=== PATIENT | male | born 1945 | race Caucasian/White ===

== ENCOUNTER 2017-05-02 05:51 | Emergency (ER) | payer MEDICARE, OTHER ==
--- NOTE | 2017-05-02 06:21 | EDM.PDOC ---
ED HPI GENERAL MEDICAL PROBLEM - General Chief Complaint: ENT Problem Stated Complaint: TONGUE SUrGERY LAST MONDAY BLEEDING Time Seen by Provider: 05/02/17 06:02 Source of Information: Reports: Patient, Family (spouse) History Limitations: Reports: No Limitations - History of Present Illness INITIAL COMMENTS - FREE TEXT/NARRATIVE: 72-year-old male presents to the ED with active bright red bleeding from his right lateral tongue. 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 Apparently sutures were placed but none are apparent this time. He did have some mild bleeding yesterday but awoke with a mouthful of blood about an hour ago and it's continued to bleed actively from the right side of his tongue. Of note the patient is chronically anticoagulated with Coumadin which he started back on the day after surgery. 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 Onset: Today Onset Date: 05/02/17 Onset Time: 05:00 Duration: Minutes: Location: Reports: Face (Active bleeding from site of surgical wound right side of tongue.) Quality: Reports: Other Severity: Moderate Improves with: Reports: None Worsens with: Reports: None Context: Reports: Trauma (Bleeding from surgical site right lateral tongue.). Denies: Activity, Exercise, Lifting, Sick Contact Associated Symptoms: Reports: No Other Symptoms Treatments SENIOR ENERGY CONSULTANT: Reports: Other (see below) (None.) Left Oral/Mouth Pain Score (Numeric/FACES): 3 - Related Data Allergies Allergy/AdvReac Type Severity Reaction Status Date / Time No Known Allergies Allergy Verified 05/02/17 06:02 Home Meds: Home Meds Amantadine [Symmetrel] 100 mg PO TID 05/02/17 [History] Hydrochlorothiazide 25 mg PO DAILY 05/02/17 [History] Metoprolol Tartrate 50 mg PO BID 05/02/17 [History] Potassium Chloride 10 meq PO DAILY 05/02/17 [History] Rosuvastatin [Crestor] 10 mg PO DAILY 05/02/17 [History] Tamsulosin [Flomax] 0.4 mg PO DAILY 05/02/17 [History] Valsartan 160 mg PO DAILY 05/02/17 [History] Warfarin [Coumadin] 7.5 mg PO SUMOWETHFRSA 05/02/17 [History] Warfarin [Coumadin] 10 mg PO TU 05/02/17 [History] amLODIPine Besylate [Amlodipine Besylate] 5 mg PO DAILY 05/02/17 [History] Past Medical History Cardiovascular History: Reports: High Cholesterol, Hypertension, Other (See Below) Other Cardiovascular History: Valve replacement Gastrointestinal History: Reports: Hiatal Hernia Other Musculoskeletal History: back fracture Neurological History: Reports: Parkinson's Hematologic History: Reports: Blood Transfusion(s) - Past Surgical History GI Surgical History: Reports: Cholecystectomy Social & Family History - Tobacco Use Smoking Status *Q: Former Smoker Used Tobacco, but Quit: Yes Month/Year Tobacco Last Used: 1989 - Recreational Drug Use Recreational Drug Use: No - Living Situation & Occupation Living situation: Reports: Occupation: Retired ED ROS ENT - Review of Systems Review Of Systems: See Below Constitutional: Reports: Malaise, Weakness, Fatigue (Chronically), Decreased Appetite (Hasn't been able to eat much because of his sore tongue the last few days.). Denies: Fever, Chills HEENT: Reports: Other (Resident dictation to the ED because of severe bleeding from right lateral side of tongue.) Respiratory: Reports: No Symptoms Cardiovascular: Reports: No Symptoms Endocrine: Reports: Fatigue (Due to Parkinson's disease.) GI/Abdominal: Reports: No Symptoms : Reports: Frequency Skin: Reports: No Symptoms Neurological: Reports: Other (Severe Parkinson's disease with uncontrolled titubation tremor of head and neck as well as extremities.) Psychiatric: Reports: No Symptoms Hematologic/Lymphatic: Reports: No Symptoms Immunologic: Reports: No Symptoms ED EXAM, ENT - Physical Exam Exam: See Below Exam Limited By: Physical Impairment (Exam is limited by his severe Parkinson's disease) General Appearance: Alert, WD/WN, No Apparent Distress, Other (Has masklike feces.) Mouth/Throat: Other (Examination reveals very active bleeding from the right side of his mid tongue. This appears to be a site of recent biopsy or surgical excision. No sutures are apparent. The wound is actively bleeding bright red blood. Attempts to bring it under control with silver nitrate failed. Large clot was removed from the floor the mouth and lateral aspect of the tongue.) Head: Atraumatic, Normocephalic Neck: Normal Inspection, Supple, Non-Tender, Full Range of Motion. No: Lymphadenopathy (L), Lymphadenopathy (R) Respiratory/Chest: No Respiratory Distress ED ENT PROCEDURES - Laceration/Wound Repair Lateral Lac/wound length in cm: 1 (Lateral side mid right tongue) Appearance: Subcutaneous Anesthetic Type: Local Local Anesthesia - Lidocaine (Xylocaine): 1% with EPI Suture Size: 4-0 # of Sutures: 4 Repaired with: Vicryl Course - Vital Signs Last Recorded V/S: Last Vital Signs Temp 35.7 C 05/02/17 06:02 Pulse 72 05/02/17 07:33 Resp 18 05/02/17 07:33 BP 127/68 05/02/17 07:33 Pulse Ox 100 05/02/17 07:33 - Orders/Labs/Meds Orders: Active Orders 24 hr Category Date Time Status CBC WITH MANUAL DIFF [HEME] Stat Lab 05/02/17 06:34 Results Dextrose 5%-0.9% NaCl [Dextrose 5%-Normal Saline] 1,000 Med 05/02/17 07:00 Active ml IV ASDIRECTED Dextrose 5%-0.9% NaCl [Dextrose 5%-Normal Saline] 1,000 Med 05/02/17 07:00 Active ml IV ASDIRECTED Tranexamic Acid [Cyklokapron] Med 05/02/17 06:15 Active 1,000 mg TOP ONETIME Medication Orders Dextrose/Sodium Chloride (Dextrose 5%-Normal Saline) 1,000 mls @ 999 drops/hr IV ASDIRECTED CORNELIUS Dextrose/Sodium Chloride (Dextrose 5%-Normal Saline) 1,000 mls @ 999 mls/hr IV ASDIRECTED CORNELIUS Tranexamic Acid (Cyklokapron) 1,000 mg TOP ONETIME CORNELIUS Labs: Laboratory Tests 05/02/17 05/02/17 05/02/17 Range/Units 06:34 06:34 06:34 WBC 7.54 (4.23-9.07) K/mm3 RBC 4.25 L (4.63-6.08) M/mm3 Hgb 13.6 L (13.7-17.5) gm/L Hct 39.4 L (40.1-51.0) % MCV 92.7 H (79.0-92.2) fl MCH 32.0 (25.7-32.2) pg MCHC 34.5 (32.2-35.5) g/dl RDW Std Deviation 45.5 H (35.1-43.9) fL Plt Count 203 (163-337) K/mm3 MPV 9.1 L (9.4-12.3) fl PT 30.3 H (8.0-13.0) SECONDS INR 2.80 Sodium 142 (136-145) mEq/L Potassium 3.5 (3.5-5.1) mEq/L Chloride 106 (98-107) mEq/L Carbon Dioxide 25 (21-32) mEq/L Anion Gap 14.5 (5-15) BUN 25 H (7-18) mg/dL Creatinine 1.0 (0.7-1.3) mg/dL Est Cr Clr Drug Dosing 75.44 mL/min Estimated GFR (MDRD) > 60 (>60) mL/min BUN/Creatinine Ratio 25.0 H (14-18) Glucose 116 H (80-115) mg/dL Calcium 9.0 (8.5-10.1) mg/dL Total Bilirubin 0.9 (0.2-1.0) mg/dL AST 34 (15-37) U/L ALT 39 (16-63) U/L Alkaline Phosphatase 121 H (46-116) U/L Total Protein 7.4 (6.4-8.2) g/dl Albumin 3.7 (3.4-5.0) g/dl Globulin 3.7 gm/dL Albumin/Globulin Ratio 1.0 (1-2) Meds: Medications Generic Name Dose Route Start Last Admin Trade Name Freq PRN Reason Stop Dose Admin Dextrose/Sodium Chloride 1,000 mls @ 999 drops/hr 05/02/17 07:00 Dextrose 5%-Normal Saline IV ASDIRECTED CORNELIUS Dextrose/Sodium Chloride 1,000 mls @ 999 mls/hr 05/02/17 07:00 Dextrose 5%-Normal Saline IV ASDIRECTED CORNELIUS Tranexamic Acid 1,000 mg 05/02/17 06:15 Cyklokapron TOP ONETIME CORNELIUS Discontinued Medications Generic Name Dose Route Start Last Admin Trade Name Freq PRN Reason Stop Dose Admin Lidocaine HCl Confirm 05/02/17 07:19 Xylocaine-Mpf 1% Administered 05/02/17 07:20 Dose 4 mls @ as directed .ROUTE .STK-MED ONE Lidocaine/Epinephrine 20 ml 05/02/17 07:15 Xylocaine 1% With Epinephrine 1:100,000 INJECT 05/02/17 07:16 ONETIME ONE Lidocaine/Epinephrine Confirm 05/02/17 07:21 Xylocaine 1% With Epinephrine 1:100,000 Administered 05/02/17 07:22 Dose 20 ml .ROUTE .STK-MED ONE Ondansetron HCl 4 mg 05/02/17 08:13 Zofran Odt PO 05/02/17 08:14 ONETIME ONE Oxycodone/Acetaminophen 1 tab 05/02/17 08:14 Percocet 325-5 Mg PO 05/02/17 08:15 ONETIME ONE Propofol Confirm 05/02/17 07:20 Diprivan 20 Ml Administered 05/02/17 07:21 Dose 200 mg .ROUTE .STK-MED ONE - Radiology Interpretation Free Text/Narrative:: 72-year-old male presents to the ED with active bright red bleeding from right lateral surgical tongue wound. She had a chronic ulcer on the side of his right tongue was failing to heal and went to your nose and throat surgery after many months to have it removed. This was done on April 28. Of note the patient is on Coumadin chronically due to atrial fibrillation. Apparently his Coumadin was not discontinued for the procedure. At any rate she's been up most of the night with very active bleeding from the tongue trying to compress it to get it to stop bleeding with gauze but it continues to bleed. I attempted to bring it under control with silver nitrate sticks but it is bleeding too aggressively. Also placed trans-anemic acid into the wound but again it was slow the bleeding but will not stop it. I will therefore speak to VP OF MARKETING about providing a short course of anesthesia or conscious sedation so that I can gain control of the area of bleeding without his tongue moving aggressively from Parkinson's disease. Plan will be to inject it with one or 2% lidocaine with epinephrine and then sutured with Vicryl suture 2 to stop the bleeding. - Re-Assessments/Exams Free Text/Narrative Re-Assessment/Exam: 05/02/17 07:31 patient was given propofol by VP OF [employer]ET[employer] which allowed adequate sedation to allow me to suture the bleeding site from the right tongue. It was injected first with lidocaine with 1% epinephrine. Bleeding came under control with 4 Vicryl 40 sutures. She'll be allowed to recover from-anesthetic and will be monitored for the next 45 minutes to make sure bleeding his come under good control. 05/02/17 07:56 White count is 7.54 with differential pending. Hemoglobin is 13.6 with hematocrit of 39.4. Platelet count is normal at 203,000. PT is 30.3 and INR is a bit high at 2.80.. Sodium is 142 with potassium of 3.5. Chloride 106 bicarbonate 25. Anion gap is 14.5. BUNs 25 with a creatinine of 1.0 i.e. he is mildly dry. GFR is greater than 60. Glucose is 116. Alkaline phosphatase is 121 slightly elevated. Liver function otherwise normal. I'm going to have the patient hold his Coumadin today but resume normal dose tomorrow. On reinspection he still has slight oozing from the lateral aspect of his right tongue but for the most part the bleeding is controlled. 05/02/17 08:14 is now having significant amount of pain in the right side of his tongue radiating to his right ear. Will give him a Percocet 5//25 milligram tablet by mouth with Zofran 4 mg sublingually for pain relief. His has returned and therefore I will discharge him into her care. Departure - Departure Time of Disposition: 08:16 Disposition: Home, Self-Care 01 Condition: Fair Clinical Impression: Hemorrhage of tongue Wound dehiscence, surgical Qualifiers: Encounter type: initial encounter Qualified Code(s): T81.31XA - Disruption of external operation (surgical) wound, not elsewhere classified, initial encounter - Discharge Information Referrals: eTra Crawford MD [Primary Care Provider] - Forms: ED Department Discharge Additional Instructions: Evaluation the emergency room this morning in regards to persistent active bleeding from the right lateral aspect of your tongue at site of recent surgical wound. And a large ulcer was removed from the lateral aspect of your tongue by ear nose and throat surgeon on April 28. As you appreciated slight bleeding occurred from the wound yesterday but bleeding persisted most of the night. On my inspection 2 of the sutures that had been placed on the distal aspect of the wound had torn through. Due to being on Coumadin you had very aggressive bleeding from the lateral aspect of your tongue. I could not bring it under control with topical cautery or transemic acid application. You therefore required mild anesthesia to provide sedation so that we could adequately identify the source of bleeding and I resutured the wound to bring the bleeding under control. For more Vicryl sutures were placed to stop the bleeding. The stitches will dissolve on their own. Your Coumadin time today was a little on the high side at INR 2.8. Suggest holding her Coumadin today and resuming normal dose tomorrow. Of course return to the ED or follow up with ear nose and throat surgeon if further bleeding continues. Your hemoglobin today was 13.9 which is normal. - My Orders Last 24 Hours: My Active Orders 05/02/17 06:15 Tranexamic Acid [Cyklokapron] 1,000 mg TOP ONETIME 05/02/17 06:34 CBC WITH MANUAL DIFF [HEME] Stat 05/02/17 07:00 Dextrose 5%-0.9% NaCl [Dextrose 5%-Normal Saline] 1,000 ml IV ASDIRECTED Dextrose 5%-0.9% NaCl [Dextrose 5%-Normal Saline] 1,000 ml IV ASDIRECTED - Assessment/Plan Last 24 Hours: My Active Orders 05/02/17 06:15 Tranexamic Acid [Cyklokapron] 1,000 mg TOP ONETIME 05/02/17 06:34 CBC WITH MANUAL DIFF [HEME] Stat 05/02/17 07:00 Dextrose 5%-0.9% NaCl [Dextrose 5%-Normal Saline] 1,000 ml IV ASDIRECTED Dextrose 5%-0.9% NaCl [Dextrose 5%-Normal Saline] 1,000 ml IV ASDIRECTED
[2017-05-02] MEDS ORDERED: Dextrose 5%-0.9% NaCl 1,000 ML IV SCH ×2 (07:00)
--- NOTE | 2017-05-02 07:13 | PCM.PREANE ---
Preanesthetic Assessment - Anesthesia/Transfusion/Family Hx Anesthesia History: Prior Anesthesia Without Reaction Family History of Anesthesia Reaction: No Transfusion History: Prior Transfusion Without Reaction - Review of Systems General: No Symptoms Pulmonary: No Symptoms Cardiovascular: No Symptoms Gastrointestinal: No Symptoms Neurological: Other (parkinsons) Other: Reports: Easy Bleeding, Easy Bruising - Physical Assessment O2 Sat by Pulse Oximetry: 99 Respiratory Rate: 18 Vital Signs: Last Vital Signs Temp 96.3 F 05/02/17 06:02 Pulse 62 05/02/17 06:02 Resp 18 05/02/17 06:02 BP 154/114 H 05/02/17 06:02 Pulse Ox 99 05/02/17 06:02 Height: 6 ft Weight: 88.451 kg ASA Class: 2E Mental Status: Alert & Oriented x3 Airway Class: Mallampati = 1 Dentition: Reports: Normal Dentition Thyro-Mental Finger Breadths: 3 Mouth Opening Finger Breadths: 3 ROM/Head Extension: Full - Lab Values: Laboratory Last Values WBC 7.54 K/mm3 (4.23-9.07) 05/02/17 06:34 RBC 4.25 M/mm3 (4.63-6.08) L 05/02/17 06:34 Hgb 13.6 gm/L (13.7-17.5) L 05/02/17 06:34 Hct 39.4 % (40.1-51.0) L 05/02/17 06:34 MCV 92.7 fl (79.0-92.2) H 05/02/17 06:34 MCH 32.0 pg (25.7-32.2) 05/02/17 06:34 MCHC 34.5 g/dl (32.2-35.5) 05/02/17 06:34 RDW Std Deviation 45.5 fL (35.1-43.9) H 05/02/17 06:34 Plt Count 203 K/mm3 (163-337) 05/02/17 06:34 MPV 9.1 fl (9.4-12.3) L 05/02/17 06:34 - Allergies Allergies/Adverse Reactions: Allergies Allergy/AdvReac Type Severity Reaction Status Date / Time No Known Allergies Allergy Verified 05/02/17 06:02 - Blood Blood Available: No - Anesthesia Plan Pre-Op Medication Ordered: Beta Alisha Beta Alisha: Metoprolol Med Last Dose Date: 05/01/17 Med Last Dose Time: 18:00 - Acknowledgements Anesthesia Type Planned: MAC Pt an Appropriate Candidate for the Planned Anesthesia: Yes Alternatives and Risks of Anesthesia Discussed w Pt/Guardian: Yes Pt/Guardian Understands and Agrees with Anesthesia Plan: Yes PreAnesthesia Questionnaire Cardiovascular History: Reports: High Cholesterol, Hypertension, Other (See Below) Other Cardiovascular History: Valve replacement Gastrointestinal History: Reports: Hiatal Hernia Other Musculoskeletal History: back fracture Neurological History: Reports: Parkinson's Hematologic History: Reports: Blood Transfusion(s) - Past Surgical History HEENT Surgical History: Reports: Oral Surgery GI Surgical History: Reports: Cholecystectomy Neurological Surgical History: Reports: Other (See Below) (jody in back) - SUBSTANCE USE Smoking Status *Q: Former Smoker Tobacco Use Within Last Twelve Months: No Second Hand Smoke Exposure: No Days Per Week of Alcohol Use: 0 Recreational Drug Use History: No - HOME MEDS Home Medications: Home Meds Amantadine [Symmetrel] 100 mg PO TID 05/02/17 [History] Hydrochlorothiazide 25 mg PO DAILY 05/02/17 [History] Metoprolol Tartrate 50 mg PO BID 05/02/17 [History] Potassium Chloride 10 meq PO DAILY 05/02/17 [History] Rosuvastatin [Crestor] 10 mg PO DAILY 05/02/17 [History] Tamsulosin [Flomax] 0.4 mg PO DAILY 05/02/17 [History] Valsartan 160 mg PO DAILY 05/02/17 [History] Warfarin [Coumadin] 7.5 mg PO SUMOWETHFRSA 05/02/17 [History] Warfarin [Coumadin] 10 mg PO TU 05/02/17 [History] amLODIPine Besylate [Amlodipine Besylate] 5 mg PO DAILY 05/02/17 [History] - CURRENT (IN HOUSE) MEDS Current Meds: Current Medications Dextrose/Sodium Chloride (Dextrose 5%-Normal Saline) 1,000 mls @ 999 drops/hr IV ASDIRECTED CORNELIUS Dextrose/Sodium Chloride (Dextrose 5%-Normal Saline) 1,000 mls @ 999 mls/hr IV ASDIRECTED CORNELIUS Tranexamic Acid (Cyklokapron) 1,000 mg TOP ONETIME CORNELIUS Discontinued Medications Lidocaine HCl (Xylocaine-Mpf 1%) Confirm Administered Dose 4 mls @ as directed .ROUTE .STK-MED ONE Stop: 05/02/17 07:20 Propofol (Diprivan 20 Ml) Confirm Administered Dose 200 mg .ROUTE .STK-MED ONE Stop: 05/02/17 07:21
[2017-05-02] MEDS ORDERED: Lidocaine 1% with EPINEPHrine 1:100,000 20 ML MDV INJECT ONE (07:15)
[2017-05-02] MEDS ORDERED: Lidocaine 1% 4 ML ONE (07:19)
[2017-05-02] MEDS ORDERED: Propofol 200 MG/20 ML SDV ONE (07:20)
[2017-05-02] MEDS ORDERED: Lidocaine 1% with EPINEPHrine 1:100,000 20 ML MDV ONE (07:21)
--- NOTE | 2017-05-02 07:33 | PCM48HPAN ---
Post Anesthesia Note - EVALUATION WITHIN 48HRS OF ANESTHETIC Vital Signs in Normal Range: Yes Patient Participated in Evaluation: Yes Respiratory Function Stable: Yes Airway Patent: Yes Cardiovascular Function Stable: Yes Hydration Status Stable: Yes Pain Control Satisfactory: Yes Nausea and Vomiting Control Satisfactory: Yes Mental Status Recovered: Yes Pulse Rate: 72 SaO2: 100 Resp Rate: 18 Blood Pressure: 127/68
[2017-05-02] MEDS ORDERED: Ondansetron 4 MG Tab.DIS PO ONE (08:13)
[2017-05-02] MEDS ORDERED: Acetaminophen/oxyCODONE 325-5 MG Tab PO ONE (08:14)
== END 2017-05-02 08:53 | disposition home or self-care (01) ==
LOC: JD.ED 05:51
DX: T81.31XA Disruption of external operation (surgical) wound, not elsewhere classified, initial encounter (principal); I10 Essential (primary) hypertension; E78.00 Pure hypercholesterolemia, unspecified; Z95.2 Presence of prosthetic heart valve; Z87.891 Personal history of nicotine dependence; Z79.01 Long term (current) use of anticoagulants; Z79.899 Other long term (current) drug therapy; Z98.890 Other specified postprocedural states; K14.8 Other diseases of tongue
CPT/HCPCS: 36415; 36430; 41250; 80053; 85025; 85610; 86900; 86901; 96360; 96365; 99283; 99284; A9270; J3430; J7042; J7050; P9017; 00170; 12011; J2704

== ENCOUNTER 2017-05-02 12:27 | Emergency (ER) | payer MEDICARE, OTHER ==
[2017-05-02] MEDS ORDERED: Sodium Chloride 0.9% 10 ML Syringe FLUSH PRN (12:51)
[2017-05-02] MEDS ORDERED: Phytonadione 5 MG in Sodium Chloride 0.9% 50 ML IV ONE (12:53)
--- NOTE | 2017-05-02 16:40 | EDM.PDOC ---
ED HPI GENERAL MEDICAL PROBLEM - General Chief Complaint: ENT Problem Stated Complaint: TONGUE BLEEDING Time Seen by Provider: 05/02/17 12:46 Source of Information: Reports: Patient, Family (Spouse), RN Notes Reviewed - History of Present Illness INITIAL COMMENTS - FREE TEXT/NARRATIVE: 72 year old male returns with bleeding R tongue. He had an ulcer surgically repaired, revised [address] Fox, Oral Surgeon, [place]. He is on coumadin for chronic atrial fib. he did well for the first 2 or 3 days but has started to have bleeding trouble, I believe early this AM. He was evaluated here in the ED by Dr Xiong, unable to stop or control bleeding with pressure. Anesthesia was called in to sedate patient to allow Dr Xiong to place a couple of vicryl sutures. Patient was discharged thereafter doing better, maybe some slight oozing. INR at that time 2.8. The bleeding became fairly severe again about an hour or 2 later, unable to control with pressure at home. He did not take his morning coumadin today but had continued taking it as usual up until today. He does have hx of chronic head and tongue dyskenesia which makes it more difficult to work on his tongue and may have started today's bleeding. Oral/Mouth Pain Score (Numeric/FACES): 7 - Related Data Allergies Allergy/AdvReac Type Severity Reaction Status Date / Time No Known Allergies Allergy Verified 05/02/17 12:43 Home Meds: Home Meds Amantadine [Symmetrel] 100 mg PO TID 05/02/17 [History] Hydrochlorothiazide 25 mg PO DAILY 05/02/17 [History] Metoprolol Tartrate 50 mg PO BID 05/02/17 [History] Potassium Chloride 10 meq PO DAILY 05/02/17 [History] Rosuvastatin [Crestor] 10 mg PO DAILY 05/02/17 [History] Tamsulosin [Flomax] 0.4 mg PO DAILY 05/02/17 [History] Valsartan 160 mg PO DAILY 05/02/17 [History] Warfarin [Coumadin] 7.5 mg PO SUMOWETHFRSA 05/02/17 [History] Warfarin [Coumadin] 10 mg PO TU 05/02/17 [History] amLODIPine Besylate [Amlodipine Besylate] 5 mg PO DAILY 05/02/17 [History] Past Medical History Cardiovascular History: Reports: High Cholesterol, Hypertension, Other (See Below) Other Cardiovascular History: Valve replacement Gastrointestinal History: Reports: Hiatal Hernia Musculoskeletal History: Reports: Back Pain, Chronic Other Musculoskeletal History: back fracture Neurological History: Reports: Parkinson's Hematologic History: Reports: Blood Transfusion(s) - Past Surgical History HEENT Surgical History: Reports: Oral Surgery GI Surgical History: Reports: Cholecystectomy Social & Family History - Tobacco Use Smoking Status *Q: Never Smoker Used Tobacco, but Quit: Yes Month/Year Tobacco Last Used: 1989 Second Hand Smoke Exposure: No - Caffeine Use Caffeine Use: Reports: None - Alcohol Use Days Per Week of Alcohol Use: 0 - Recreational Drug Use Recreational Drug Use: No - Living Situation & Occupation Living situation: Reports: Occupation: Retired ED ROS ENT - Review of Systems Review Of Systems: See Below Constitutional: Denies: Fever, Chills, Diaphoresis HEENT: Reports: Other (bleeding from) Respiratory: Denies: Shortness of Breath Cardiovascular: Denies: Chest Pain GI/Abdominal: Denies: Nausea, Vomiting Musculoskeletal: Reports: No Symptoms Skin: Reports: No Symptoms Neurological: Reports: No Symptoms ED EXAM, ENT - Physical Exam Exam: See Below General Appearance: Alert, Mild Distress Eye Exam: Bilateral Eye: PERRL Mouth/Throat: Other (bleeding, mild oozing of blood R tongue, there is a flap of tissue hanging somwhat loosely R lateral anterior tongue with most of the oozing coming from anteior lateral margin. ) Head: Atraumatic Neck: Supple Respiratory/Chest: No Respiratory Distress, Lungs Clear, Normal Breath Sounds Cardiovascular: Irregularly Irregular Extremities: Normal Inspection. No: Pedal Edema Neurological: Alert, Oriented, No Motor/Sensory Deficits, Other (chronic uncontrollable head bobbing, dystonic motion of tongue as well) Skin: Warm, Dry, Normal Color Course - Vital Signs Last Recorded V/S: Last Vital Signs Temp 99.2 F 05/02/17 15:35 Pulse 63 05/02/17 15:35 Resp 16 05/02/17 15:35 BP 145/93 H 05/02/17 15:35 Pulse Ox 99 05/02/17 12:43 - Orders/Labs/Meds Orders: Active Orders 24 hr Category Date Time Status Peripheral IV Care [RC] . DIRECTED Care 05/02/17 12:51 Active ABO/RH TYPE [BBK] Stat Lab 05/02/17 14:37 Results FRESH FROZEN PLASMA [BBK] Stat Lab 05/02/17 14:37 Results Peripheral IV Insertion Adult [OM.PC] Stat Oth 05/02/17 12:51 Ordered Labs: Laboratory Tests 05/02/17 05/02/17 05/02/17 Range/Units 14:37 14:37 14:37 WBC 7.61 (4.23-9.07) K/mm3 RBC 3.90 L (4.63-6.08) M/mm3 Hgb 12.7 L (13.7-17.5) gm/L Hct 36.6 L (40.1-51.0) % MCV 93.8 H (79.0-92.2) fl MCH 32.6 H (25.7-32.2) pg MCHC 34.7 (32.2-35.5) g/dl RDW Std Deviation 46.3 H (35.1-43.9) fL Plt Count 186 (163-337) K/mm3 MPV 9.0 L (9.4-12.3) fl Neut % (Auto) 77.5 H (34.0-67.9) % Lymph % (Auto) 12.6 L (21.8-53.1) % Stearns % (Auto) 8.7 (5.3-12.2) % Eos % (Auto) 0.9 (0.8-7.0) Baso % (Auto) 0.3 (0.1-1.2) % Neut # (Auto) 5.90 H (1.78-5.38) K/mm3 Lymph # (Auto) 0.96 L (1.32-3.57) K/mm3 Stearns # (Auto) 0.66 (0.30-0.82) K/mm3 Eos # (Auto) 0.07 (0.04-0.54) K/mm3 Baso # (Auto) 0.02 (0.01-0.08) K/mm3 PT 28.1 H (8.0-13.0) SECONDS INR 2.60 Blood Type B POSITIVE Meds: Medications Discontinued Medications Generic Name Dose Route Start Last Admin Trade Name Freq PRN Reason Stop Dose Admin Phytonadione 5 mg/ Sodium 50.5 mls @ 100 mls/hr 03/13/18 12:53 05/02/17 13:40 Chloride IV 05/02/17 13:23 100 mls/hr NOW ONE Administration Sodium Chloride 10 ml 05/02/17 12:51 05/02/17 13:10 Saline Flush FLUSH 10 ml ASDIRECTED PRN Administration Keep Vein Open - Re-Assessments/Exams Free Text/Narrative Re-Assessment/Exam: 05/02/17 15:25. applied quickclot with gauze against area of oozing. I asked his to hold pressure against it and also staff which has helped but also difficult with the continued head bobbing and tongue motion. I ordered Vit. K 5 mg IV and and 2 units FFP. When I last checked a short time ago he was still oozing anterior tongue but FFP not yet started. 16:45. Bleeding has stopped. Has been stopped for the last 20 to 30 minutes. Will let patient go home, will have him not take the coumadin for at least 3 to 5 days. Follow up with Dr Fox this Monday 3 days from now. Departure - Departure Time of Disposition: 17:07 Disposition: Home, Self-Care 01 Condition: Fair Clinical Impression: Hemorrhage of tongue - Discharge Information Instructions: Tongue Laceration, [id number] Referrals: Tera Crawford MD [Primary Care Provider] - Forms: ED Department Discharge Additional Instructions: pressure with quick clot gauze if needed for any further bleeding. If that does not work and there is bleeding that is not stopping at home with pressure than return to ED. Do not take your coumadin for at least the next 3 to [address] Fox this Monday at clinic for recheck. Call for appt. - My Orders Last 24 Hours: My Active Orders 05/02/17 12:51 Peripheral IV Care [RC] . DIRECTED Peripheral IV Insertion Adult [OM.PC] Stat 05/02/17 14:37 ABO/RH TYPE [BBK] Stat FRESH FROZEN PLASMA [BBK] Stat - Assessment/Plan Last 24 Hours: My Active Orders 05/02/17 12:51 Peripheral IV Care [RC] . DIRECTED Peripheral IV Insertion Adult [OM.PC] Stat 05/02/17 14:37 ABO/RH TYPE [BBK] Stat FRESH FROZEN PLASMA [BBK] Stat
== END 2017-05-02 17:25 | disposition home or self-care (01) ==
LOC: JD.ED 12:27
DX: K14.8 Other diseases of tongue (principal); I10 Essential (primary) hypertension; E78.00 Pure hypercholesterolemia, unspecified; Z95.2 Presence of prosthetic heart valve; Z87.891 Personal history of nicotine dependence; Z79.01 Long term (current) use of anticoagulants; Z79.899 Other long term (current) drug therapy
CPT/HCPCS: 36415; 85025; 85610; 96365; 99283; J3430; J7050; P9017; 36430; 86900; 86901

== ENCOUNTER 2017-05-03 03:43 | Emergency (ER) | payer MEDICARE, OTHER ==
--- NOTE | 2017-05-03 04:04 | EDM.PDOC ---
ED HPI GENERAL MEDICAL PROBLEM - General Chief Complaint: ENT Problem Stated Complaint: RECENT TOUNGE SURGERY BLEEDING AGAIN Time Seen by Provider: 05/03/17 04:00 - History of Present Illness INITIAL COMMENTS - FREE TEXT/NARRATIVE: 72-year-old male returns emergency room with bleeding from his right tongue. The bleeding restarted several hours ago. The patient was seen here twice yesterday with the same complaint last week the patient had a biopsy done on his tongue with a series of sutures up the right side of his tongue. The patient has dyskinesia with frequent rapid movement of his tongue and head. This tongue keeps rubbing up against his teeth. Patient cannot control his movements. On his first visit he had 3 stitches placed. On his second visit with direct pressure and Surgicel he had mediocre control he was given vitamin K and FFP and ultimately his bleeding stopped however early this morning it started up again. Patient denies any other symptoms at this point Right Oral/Mouth Pain Score (Numeric/FACES): 2 - Related Data Allergies Allergy/AdvReac Type Severity Reaction Status Date / Time No Known Allergies Allergy Verified 05/03/17 03:50 Home Meds: Home Meds Amantadine [Symmetrel] 100 mg PO TID 05/02/17 [History] Hydrochlorothiazide 25 mg PO DAILY 05/02/17 [History] Metoprolol Tartrate 50 mg PO BID 05/02/17 [History] Potassium Chloride 10 meq PO DAILY 05/02/17 [History] Rosuvastatin [Crestor] 10 mg PO DAILY 05/02/17 [History] Tamsulosin [Flomax] 0.4 mg PO DAILY 05/02/17 [History] Valsartan 160 mg PO DAILY 05/02/17 [History] Warfarin [Coumadin] 7.5 mg PO SUMOWETHFRSA 05/02/17 [History] Warfarin [Coumadin] 10 mg PO TU 05/02/17 [History] amLODIPine Besylate [Amlodipine Besylate] 5 mg PO DAILY 05/02/17 [History] Past Medical History Cardiovascular History: Reports: High Cholesterol, Hypertension, Other (See Below) Other Cardiovascular History: Valve replacement Gastrointestinal History: Reports: Hiatal Hernia Musculoskeletal History: Reports: Back Pain, Chronic Other Musculoskeletal History: back fracture Neurological History: Reports: Parkinson's Hematologic History: Reports: Anticoagulation Therapy, Blood Transfusion(s) - Past Surgical History HEENT Surgical History: Reports: Oral Surgery GI Surgical History: Reports: Cholecystectomy Social & Family History - Tobacco Use Smoking Status *Q: Never Smoker Used Tobacco, but Quit: Yes Month/Year Tobacco Last Used: 1989 Second Hand Smoke Exposure: No - Caffeine Use Caffeine Use: Reports: None - Alcohol Use Days Per Week of Alcohol Use: 0 - Recreational Drug Use Recreational Drug Use: No - Living Situation & Occupation Living situation: Reports: Occupation: Retired ED ROS ENT - Review of Systems Review Of Systems: See Below Constitutional: Reports: No Symptoms HEENT: Reports: Other (Leaking from his tongue otherwise no problems) Respiratory: Reports: No Symptoms Cardiovascular: Reports: No Symptoms GI/Abdominal: Reports: No Symptoms ED EXAM, ENT - Physical Exam Exam: See Below Exam Limited By: No Limitations General Appearance: Alert, No Apparent Distress, Other (He has rapid uncontrollable movements of his head and tongue, dyskinesia. This is the only portion of his body affected) Ears: Normal External Exam, Normal Canal, Hearing Grossly Normal, Normal TMs Nose: Normal Inspection, Normal Mucousa, No Blood Mouth/Throat: Normal Inspection, Normal Gums, Other (Lateral portion of his right tongue has an active bleeder. Several stitches appear loose.) Neck: Normal Inspection. No: Lymphadenopathy (L), Lymphadenopathy (R) ED ENT PROCEDURES - Laceration/Wound Repair Mouth Lac/wound length in cm: 1 (Submucosal right lateral tongue) Anesthetic Type: Local Local Anesthesia - Lidocaine (Xylocaine): 1% with EPI Local Anesthetic Volume: Other (1.3 ccs) Suture Size: 3-0 # of Sutures: 4 Suture Type: Interrupted Complications: None Progress/Comments: The patient's head was gently secured with his forehead and his jaw secured this limited a significant portion of the motion his tongue was then secured with a 4 x 4 on the distal tip and gentle traction applied and it was deviated to the left exposing the right portion of the tongue and the active bleeder using a TB syringe 1.2-1.3 mL of 1% lidocaine with epinephrine was infused through the open portion of the biopsy site. 4 simple sutures of 3-0 Vicryl were placed without difficulty yielding good wound closure and hemostasis. Course - Vital Signs Last Recorded V/S: Last Vital Signs Temp 36.5 C 05/03/17 03:50 Pulse 48 L 05/03/17 03:50 Resp 18 05/03/17 03:50 BP 136/91 H 05/03/17 03:50 Pulse Ox 96 05/03/17 03:50 - Orders/Labs/Meds Labs: Laboratory Tests 05/03/17 05/03/17 Range/Units 04:40 04:40 WBC 4.38 (4.23-9.07) K/mm3 RBC 3.81 L (4.63-6.08) M/mm3 Hgb 12.2 L (13.7-17.5) gm/L Hct 35.6 L (40.1-51.0) % MCV 93.4 H (79.0-92.2) fl MCH 32.0 (25.7-32.2) pg MCHC 34.3 (32.2-35.5) g/dl RDW Std Deviation 46.0 H (35.1-43.9) fL Plt Count 157 L (163-337) K/mm3 MPV 8.7 L (9.4-12.3) fl PT 13.4 H (8.0-13.0) SECONDS INR 1.25 Meds: Medications Discontinued Medications Generic Name Dose Route Start Last Admin Trade Name Freq PRN Reason Stop Dose Admin Lidocaine/Epinephrine 20 ml 05/03/17 04:15 Xylocaine 1% With Epinephrine 1:100,000 INJECT 05/03/17 04:16 ONETIME ONE Lidocaine/Epinephrine Confirm 05/03/17 04:21 Xylocaine 1% With Epinephrine 1:100,000 Administered 05/03/17 04:22 Dose 20 ml .ROUTE .STK-MED ONE Departure - Departure Time of Disposition: 05:44 Disposition: Home, Self-Care 01 Clinical Impression: Hemorrhage of tongue Wound dehiscence, surgical Qualifiers: Encounter type: initial encounter Qualified Code(s): T81.31XA - Disruption of external operation (surgical) wound, not elsewhere classified, initial encounter - Discharge Information Instructions: Wound Dehiscence Referrals: Tera Crawford MD [Primary Care Provider] - Forms: ED Department Discharge Additional Instructions: Return to the emergency room with any questions problems worsening symptoms. Follow up with Dr. Zabala tomorrow to discuss willing to really start your Coumadin. Call Dr. Fox and explained the situation with him and see if it would be beneficial for you to to visit with him sooner than your scheduled appointment.
[2017-05-03] MEDS ORDERED: Lidocaine 1% with EPINEPHrine 1:100,000 20 ML MDV INJECT ONE (04:15)
[2017-05-03] MEDS ORDERED: Lidocaine 1% with EPINEPHrine 1:100,000 20 ML MDV ONE (04:21)
== END 2017-05-03 05:50 | disposition home or self-care (01) ==
LOC: JD.ED 03:43
DX: S01.512A Laceration without foreign body of oral cavity, initial encounter (principal); T81.31XA Disruption of external operation (surgical) wound, not elsewhere classified, initial encounter; G24.9 Dystonia, unspecified; Z79.01 Long term (current) use of anticoagulants; Z79.899 Other long term (current) drug therapy; I10 Essential (primary) hypertension; E78.00 Pure hypercholesterolemia, unspecified; Z95.5 Presence of coronary angioplasty implant and graft; X58.XXXA Exposure to other specified factors, initial encounter
CPT/HCPCS: 12011; 36415; 41250; 85027; 85610; 99282-25; 99283-25

== ENCOUNTER 2017-08-04 15:30 | Emergency (ER) | payer OTHER, MEDICARE ==
--- NOTE | 2017-08-04 17:01 | EDM.PDOC ---
ED HPI GENERAL MEDICAL PROBLEM - General Chief Complaint: Lower Extremity Injury/Pain Stated Complaint: Knee pain Time Seen by Provider: 08/04/17 16:45 Source of Information: Reports: Patient, RN Notes Reviewed History Limitations: Reports: No Limitations - History of Present Illness INITIAL COMMENTS - FREE TEXT/NARRATIVE: 72 year old male who presents to the ED with complaints of right knee pain and swelling. He missed the last step on a concrete bucket unloader tractor and fell, landing on his right knee. He is unable to bear weight. He has significant pain and swelling. He also has pain to his distal and mid femur. No hip pain. He denies hitting his head, neck pain or LOC. Right Knee Pain Score (Numeric/FACES): 6 - Related Data Allergies Allergy/AdvReac Type Severity Reaction Status Date / Time No Known Allergies Allergy Verified 08/04/17 15:45 Home Meds: Home Meds Amantadine [Symmetrel] 100 mg PO TID 05/02/17 [History] Hydrochlorothiazide 25 mg PO DAILY 05/02/17 [History] Metoprolol Tartrate 50 mg PO BID 05/02/17 [History] Potassium Chloride 10 meq PO DAILY 05/02/17 [History] Rosuvastatin [Crestor] 10 mg PO DAILY 05/02/17 [History] Tamsulosin [Flomax] 0.4 mg PO DAILY 05/02/17 [History] Valsartan 160 mg PO DAILY 05/02/17 [History] Warfarin [Coumadin] 7.5 mg PO SUMOWETHFRSA 05/02/17 [History] Warfarin [Coumadin] 10 mg PO TU 05/02/17 [History] amLODIPine Besylate [Amlodipine Besylate] 5 mg PO DAILY 05/02/17 [History] Acetaminophen/HYDROcodone [Willis 325-5 MG] 1 tab PO Q6H #20 tablet 08/04/17 [Rx] Past Medical History Cardiovascular History: Reports: High Cholesterol, Hypertension, Other (See Below) Other Cardiovascular History: Valve replacement Gastrointestinal History: Reports: Hiatal Hernia Musculoskeletal History: Reports: Back Pain, Chronic Other Musculoskeletal History: back fracture Neurological History: Reports: Parkinson's Hematologic History: Reports: Anticoagulation Therapy, Blood Transfusion(s) - Past Surgical History HEENT Surgical History: Reports: Oral Surgery GI Surgical History: Reports: Cholecystectomy Social & Family History - Tobacco Use Smoking Status *Q: Never Smoker - Caffeine Use Caffeine Use: Reports: None - Recreational Drug Use Recreational Drug Use: No - Living Situation & Occupation Living situation: Reports: Occupation: Retired Review of Systems - Review of Systems Review Of Systems: See Below Musculoskeletal: Reports: Leg Pain, Joint Pain, Joint Swelling Skin: Reports: No Symptoms Neurological: Reports: Tremors (chronic ). Denies: Confusion, Headache ED EXAM, GENERAL - Physical Exam Exam: See Below Exam Limited By: No Limitations General Appearance: Alert, WD/WN, No Apparent Distress Respiratory/Chest: No Respiratory Distress, Lungs Clear Cardiovascular: Regular Rate, Rhythm Extremities: Joint Swelling (right knee effusion ), Leg Pain (bony point tenderness with palpation to distal femur. ), Limited Range of Motion Neurological: Alert, Oriented, Normal Cognition, Other (tremor noted - this is chronic ) Course - Vital Signs Last Recorded V/S: Last Vital Signs Temp 98.4 F 08/04/17 15:40 Pulse 68 08/04/17 15:40 Resp 13 08/04/17 15:40 BP 125/93 H 08/04/17 15:40 Pulse Ox 98 08/04/17 15:40 - Orders/Labs/Meds Orders: Active Orders 24 hr Category Date Time Status Femur Min 2V Rt [CR] Stat Exams 08/04/17 16:01 Taken Knee 3V Rt [CR] Stat Exams 08/04/17 16:01 Taken Knee wo Cont Rt [CT] Stat Exams 08/04/17 16:43 Taken - Re-Assessments/Exams Free Text/Narrative Re-Assessment/Exam: Initial x-rays of the right knee and femur were unremarkable. Discussed with Dr. Dee who recommended CT to rule out tibial plateau fracture. 08/04/17 17:50 CT read by [employer]. patient has a fractured lateral component of the bipartite patella. Patient notified of findings. Placed in knee immobilizer. Has a walker at home. Educated to rest ice and elevate. Also educated on DVT prevention. Instructed to f/u with Ortho next week. Departure - Departure Time of Disposition: 17:51 Disposition: Home, Self-Care 01 Condition: Good Clinical Impression: Patella fracture Qualifiers: Encounter type: initial encounter Fracture type: closed Fracture morphology: unspecified fracture morphology Fracture alignment: nondisplaced Laterality: right Qualified Code(s): S82.001A - Unspecified fracture of right patella, initial encounter for closed fracture - Discharge Information Prescriptions: Acetaminophen/HYDROcodone [Willis 325-5 MG] 1 tab PO Q6H #20 tablet Referrals: Tera Crawford MD [Primary Care Provider] - Forms: ED Department Discharge Additional Instructions: Rest, ice and elevate Knee immobilzer at all times. May remove to shower or bathe. No weight bearing Willis 1 tab every 6 hours as needed for pain Follow-up with one of our Orthopedic Surgeons next week. Dr. Pate [phone] Dr. Diaz [phone]. - My Orders Last 24 Hours: My Active Orders 08/04/17 16:01 Femur Min 2V Rt [CR] Stat Knee 3V Rt [CR] Stat 08/04/17 16:43 Knee wo Cont Rt [CT] Stat - Assessment/Plan Last 24 Hours: My Active Orders 08/04/17 16:01 Femur Min 2V Rt [CR] Stat Knee 3V Rt [CR] Stat 08/04/17 16:43 Knee wo Cont Rt [CT] Stat
--- NOTE | 2017-08-07 08:25 | CR ---
Right knee: Three views of the right knee were obtained. Joint effusion is seen. Bony densities are seen above the patella possibly due to avulsion fractures. Soft tissue swelling is seen within the distal quadriceps tendon and difficult to exclude a quadriceps tendon injury. Medial joint space narrowing is seen. No additional abnormality is noted. Impression: 1. Possible avulsion fracture off the suprapatella with possible quadriceps tendon injury. Please correlate if this matches clinical symptoms. MRI could be performed if above findings needs to be confirmed. 2. Mild degenerative change and small joint effusion. Diagnostic code #3
--- NOTE | 2017-08-07 08:25 | CR ---
Right femur: AP and lateral views of the right femur were obtained. Comparison: No prior right femur exam. Soft tissue swelling is noted within the distal quadriceps tendon. Bony densities are seen above the patella which may possibly represent avulsion fracture off the superior patella. Joint effusion is seen as well as soft tissue swelling. Bony structures are osteopenic. Mild joint space narrowing is seen within the medial right knee. Right femur study is otherwise unremarkable. Impression: 1. Soft tissue swelling within the distal quadriceps tendon with possible avulsion fracture off the superior patella. Please correlate if patient has symptoms of quadriceps injury. MRI would be confirmatory if clinically needed. 2. Joint effusion and degenerative change as well as osteopenia. Diagnostic code #3
--- NOTE | 2017-08-08 08:28 | CT ---
CT right knee Technique: Multiple axial sections through the right knee were obtained. Reconstructed coronal and sagittal images were reviewed. Findings: Soft tissue swelling is noted. This is seen primarily anterior. Good visualization of the quadriceps tendon is not seen. Displaced fracture fragment seen superior to the patella which is felt to be acute. Fracture also noted off the lateral aspect of the patella. Joint effusion is seen. Impression: 1. Poorly seen quadriceps tendon. Difficult to exclude quadriceps tendon injury. 2. Patellar fracture as noted above. 3. Soft tissue swelling and joint effusion. Diagnostic code #3 I agree with preliminary report from [facility], finalized at 08/04/17, 6:[address] [facility]
== END 2017-08-04 18:10 | disposition home or self-care (01) ==
LOC: SUPCPDRO 15:30 → JD.ED 15:30
DX: S82.001A Unspecified fracture of right patella, initial encounter for closed fracture (principal); I10 Essential (primary) hypertension; Z79.899 Other long term (current) drug therapy; Z79.01 Long term (current) use of anticoagulants; W10.8XXA Fall (on) (from) other stairs and steps, initial encounter
CPT/HCPCS: 73552-26-RT; 73552-RT; 73562-26-RT; 73562-RT; 73700-26-RT; 73700-RT; 99283; 99285-25

== ENCOUNTER 2020-08-03 07:56 | Emergency (ER) | payer MEDICARE, OTHER ==
--- NOTE | 2020-08-03 08:35 | EDM.PDOC ---
ED HPI GENERAL MEDICAL PROBLEM - General Chief Complaint: Respiratory Problem Stated Complaint: RIB INJURY 5 DAYS AGO SOB Time Seen by Provider: 08/03/20 08:35 Source of Information: Reports: Patient, RN Notes Reviewed - History of Present Illness INITIAL COMMENTS - FREE TEXT/NARRATIVE: 75 old male injured R ribs 6 days ago leaning over the console of a vehicle. Has continued to have pain R lateral chest, worse with deep breathing and movement. Occasional cough. No abd pain or vomiting. Right Chest Pain Score (Numeric/FACES): 5 - Related Data Allergies Allergy/AdvReac Type Severity Reaction Status Date / Time No Known Allergies Allergy Verified 08/03/20 08:32 Home Meds: Home Meds Amantadine [Symmetrel] 100 mg PO TID 05/02/17 [History] Metoprolol Tartrate 50 mg PO BID 05/02/17 [History] Potassium Chloride 10 meq PO BID 05/02/17 [History] Rosuvastatin [Crestor] 5 mg PO DAILY 05/02/17 [History] Tamsulosin [Flomax] 0.4 mg PO DAILY 05/02/17 [History] Warfarin [Coumadin] 7.5 mg PO SUMOWETHFRSA 05/02/17 [History] Warfarin [Coumadin] 10 mg PO TU 05/02/17 [History] amLODIPine Besylate [Amlodipine Besylate] 10 mg PO DAILY 05/02/17 [History] hydroCHLOROthiazide [Hydrochlorothiazide] 25 mg PO DAILY 05/02/17 [History] Acetaminophen/Codeine [Tylenol with Codeine No.3 300MG/30MG] 1 tab PO Q4H PRN #20 tab 01/04/19 [Rx] Losartan [Cozaar] 100 mg PO DAILY 01/04/19 [History] Pilocarpine [Salagen] 5 mg PO DAILY 01/04/19 [History] Trihexyphenidyl [Artane] 2 mg PO TIDMEALS 01/04/19 [History] Past Medical History HEENT History: Reports: Other (See Below) Other HEENT History: tongue bleeding from coumadin Cardiovascular History: Reports: High Cholesterol, Hypertension, Other (See Below) Other Cardiovascular History: Valve replacement Gastrointestinal History: Reports: Hiatal Hernia Musculoskeletal History: Reports: Back Pain, Chronic Other Musculoskeletal History: back fracture Neurological History: Reports: Parkinson's 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 Denies: Shortness of Breath Cardiovascular: Reports: Chest Pain GI/Abdominal: Denies: Abdominal Pain, Nausea, Vomiting Musculoskeletal: Denies: Neck Pain, Back Pain Skin: Reports: No Symptoms Neurological: Reports: No Symptoms ED EXAM, GENERAL - Physical Exam Exam: See Below General Appearance: Alert, No Apparent Distress Throat/Mouth: Normal Inspection Head: Atraumatic Neck: Supple Respiratory/Chest: No Respiratory Distress, Lungs Clear, Normal Breath Sounds, Other (Tender R lower lateral chest. No bruising or swelling visible at this time) Cardiovascular: Regular Rate, Rhythm GI/Abdominal: Soft, Non-Tender. No: Guarding Extremities: Normal Inspection, Normal Range of Motion Neurological: Alert, Oriented, No Motor/Sensory Deficits Skin Exam: Warm, Dry, Normal Color, No Rash Course - Vital Signs Last Recorded V/S: Last Vital Signs Temp 99.9 F 08/03/20 09:55 Pulse 106 H 08/03/20 09:55 Resp 20 08/03/20 09:55 BP 139/82 08/03/20 09:55 Pulse Ox 96 08/03/20 09:55 - Re-Assessments/Exams Free Text/Narrative Re-Assessment/Exam: 08/03/20 10:43 X rays, no visible fx. Departure - Departure Time of Disposition: 09:35 Disposition: Home, Self-Care 01 Condition: Fair Clinical Impression: Chest wall pain - Discharge Information Instructions: Chest Wall Pain, [id number] Referrals: Tera Crawford MD [Primary Care Provider] - Forms: ED Department Discharge Additional Instructions: Alternate ice and heat as needed. Continue tylenol 3 to 4 times daily. I will call you if our Radiologist sees and evidence of rib fracture. Follow up clinic as needed. Return to ED as needed if symptoms worsening in any way. Sepsis Event Note (ED) - Focused Exam Vital Signs: Vital Signs Temp Pulse Resp BP Pulse Ox 08/03/20 09:55 99.9 F 106 H 20 139/82 96 08/03/20 08:25 99.2 F 72 20 126/78 96
--- NOTE | 2020-08-03 09:55 | CR ---
Chest and right ribs: Frontal view of the chest is obtained as well as 3 views of the right ribs. Comparison: Prior chest x-ray of 01/04/19. Heart is mildly enlarged. Sternotomy is noted as well as prosthetic heart valve. Slight atelectasis is seen within the right lateral costophrenic angle and within the left lung base. Pulmonary vessels are slightly congested. Spinal fixation rods are noted within the lumbar spine. Surgical clips seen from prior cholecystectomy. I see no definite acute right-sided rib fracture. Nondisplaced fracture could be missed on this study. Impression: 1. Findings suspicious for minimal CHF. 2. Mild bibasilar atelectasis. 3. No definite acute rib fracture is seen. Nondisplaced fracture could be missed. Diagnostic code #3
== END 2020-08-03 10:00 | disposition home or self-care (01) ==
LOC: JD.ED 07:56
DX: R07.89 Other chest pain (principal); E78.00 Pure hypercholesterolemia, unspecified; I10 Essential (primary) hypertension; Z79.01 Long term (current) use of anticoagulants; Z79.899 Other long term (current) drug therapy
CPT/HCPCS: 71101-26-RT; 71101-RT; 99282; 99283-25

== ENCOUNTER 2020-08-04 16:41 | Inpatient (IN) | payer MEDICARE, OTHER ==
[2020-08-04] MEDS ORDERED: Sodium Chloride 0.9% 10 ML Syringe FLUSH PRN (17:15)
[2020-08-04] MEDS ORDERED: Sodium Chloride 0.9% 1,000 ML IV STA ×2 (17:15→20:39)
[2020-08-04] MEDS ORDERED: Acetaminophen 325 MG Tab PO ONE (17:20)
[2020-08-04] MEDS ORDERED: Acetaminophen 325 MG Tab ONE ×2 (17:38→17:39)
--- NOTE | 2020-08-04 17:43 | EDM.PDOC ---
ED HPI GENERAL MEDICAL PROBLEM - General Chief Complaint: Fever Stated Complaint: FEVER/DISORIENTED Time Seen by Provider: 08/04/20 17:12 Source of Information: Reports: Patient, RN Notes Reviewed History Limitations: Reports: No Limitations - History of Present Illness INITIAL COMMENTS - FREE TEXT/NARRATIVE: Patient is a 75-year-old male presenting to the emergency department with his with complaints of fever and disorientation. She reports that he developed a fever last evening and that this morning he was talking to people who were not there. Patient was seen in this ER yesterday for right rib pain x 6 days that occured after leaning over the console of a vehicle. X-rays were completed that time and showed no obvious rib fractures and no evidence of pneumonia. also reports that patient has had frequency of urination as well as dysuria. Reports that he was incontinent numerous times during the evening because they could not get him to the bathroom fast enough. He also has increased weakness. It took both his and daughter to get him out of the recliner which is abnormal for him. Patient does have a history of Parkinson's but is normally a mbulatory with a cane. Patient denies any chest pain but reports that he feels slightly short of breath. Last dose of Tylenol was around 10:00 this morning. Treatments PIPE LAYER: Reports: Acetaminophen - Related Data Allergies Allergy/AdvReac Type Severity Reaction Status Date / Time No Known Allergies Allergy Verified 08/04/20 16:57 Home Meds: Home Meds Amantadine [Symmetrel] 100 mg PO TID 05/02/17 [History] Metoprolol Tartrate 50 mg PO BID 05/02/17 [History] Potassium Chloride 10 meq PO BID 05/02/17 [History] Rosuvastatin [Crestor] 5 mg PO DAILY 05/02/17 [History] Tamsulosin [Flomax] 0.4 mg PO DAILY 05/02/17 [History] Warfarin [Coumadin] 7.5 mg PO SUMOWETHFRSA 05/02/17 [History] Warfarin [Coumadin] 10 mg PO TU 05/02/17 [History] amLODIPine Besylate [Amlodipine Besylate] 10 mg PO DAILY 05/02/17 [History] hydroCHLOROthiazide [Hydrochlorothiazide] 25 mg PO DAILY 05/02/17 [History] Acetaminophen/Codeine [Tylenol with Codeine No.3 300MG/30MG] 1 tab PO Q4H PRN #20 tab 01/04/19 [Rx] Losartan [Cozaar] 100 mg PO DAILY 01/04/19 [History] Pilocarpine [Salagen] 5 mg PO DAILY 01/04/19 [History] Trihexyphenidyl [Artane] 2 mg PO TIDMEALS 01/04/19 [History] Past Medical History HEENT History: Reports: Other (See Below) Other HEENT History: tongue bleeding from coumadin Cardiovascular History: Reports: High Cholesterol, Hypertension, Other (See Below) Other Cardiovascular History: Valve replacement Respiratory History: Reports: None Gastrointestinal History: Reports: Hiatal Hernia, Other (See Below) Other Gastrointestinal History: abdominal hernia Genitourinary History: Reports: Renal Calculus Musculoskeletal History: Reports: Back Pain, Chronic Other Musculoskeletal History: back fracture Neurological History: Reports: Parkinson's 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 Psychiatric History: Reports: Anxiety Endocrine/Metabolic History: Reports: None Hematologic History: Reports: Anticoagulation Therapy, Blood Transfusion(s) Immunologic History: Reports: None Oncologic (Cancer) History: Reports: None Dermatologic History: Reports: None - Infectious Disease History Infectious Disease History: Reports: Chicken Pox, Measles, Mumps, Rubella, Shingles - Past Surgical History Head Surgeries/Procedures: Reports: None HEENT Surgical History: Reports: Oral Surgery GI Surgical History: Reports: Cholecystectomy Neurological Surgical History: Reports: Other (See Below) Musculoskeletal Surgical History: Reports: Other (See Below) Other Musculoskeletal Surgeries/Procedures:: jody/pins--back surgery. Social & Family History - Family History Family Medical History: No Pertinent Family History - Tobacco Use Tobacco Use Status *Q: Never Tobacco User - Caffeine Use Caffeine Use: Reports: Coffee - Recreational Drug Use Recreational Drug Use: No - Living Situation & Occupation Living situation: Reports: Occupation: Retired ED ROS GENERAL - Review of Systems Review Of Systems: See Below Constitutional: Reports: Fever, Chills, Weakness, Fatigue HEENT: Reports: No Symptoms Respiratory: Reports: Shortness of Breath, Pleuritic Chest Pain, Cough Cardiovascular: Reports: No Symptoms. Denies: Blood Pressure Problem, Syncope Endocrine: Reports: No Symptoms GI/Abdominal: Reports: No Symptoms. Denies: Abdominal Pain, Diarrhea, Nausea, Vomiting : Reports: Dysuria, Frequency, Urgency. Denies: Flank Pain Musculoskeletal: Reports: No Symptoms Skin: Reports: No Symptoms Neurological: Reports: Confusion Psychiatric: Reports: No Symptoms Hematologic/Lymphatic: Reports: No Symptoms Immunologic: Reports: No Symptoms ED EXAM, SEPSIS - Physical Exam Exam: See Below Exam Limited By: No Limitations General Appearance: Alert, WD/WN, No Apparent Distress Respiratory/Chest: No Respiratory Distress, Normal Breath Sounds, No Accessory Muscle Use, Chest Non-Tender, Crackles (Right lower lobe). No: Wheezing Cardiovascular: Normal Peripheral Pulses, Regular Rate, Rhythm, No Edema, No Gallop, No JVD, No Murmur, No Rub GI/Abdominal Exam: Normal Bowel Sounds, Soft, Non-Tender, No Organomegaly, No Distention, No Abnormal Bruit, No Mass, Pelvis Stable Neurological: Alert, Oriented, CN II-XII Intact, Normal Cognition, Other (Tremor) Psychiatric: Normal Affect, Normal Mood Skin: Dry, Intact, Normal Color, No Rash, Increased Warmth Course - Vital Signs Last Recorded V/S: Last Vital Signs Temp 101.4 F H 08/04/20 17:42 Pulse 92 08/04/20 17:02 Resp 32 H 08/04/20 17:02 BP 122/65 08/04/20 17:02 Pulse Ox 89 L 08/04/20 17:02 - Orders/Labs/Meds Orders: Active Orders 24 hr Category Date Time Status Insert Hernandez Catheter [Insert Urinary Catheter] [OM.PC] Care 08/04/20 18:10 Ordered Stat Urinary Catheter Assessment [RC] ASDIRECTED Care 08/04/20 18:10 Active Chest 1V Frontal [CR] Stat Exams 08/04/20 17:15 Taken CULTURE BLOOD [BC] Stat Lab 08/04/20 17:30 Received CULTURE BLOOD [BC] Stat Lab 08/04/20 17:40 Received Sodium Chloride 0.9% [Normal Saline] 1,000 ml Med 08/04/20 17:15 Active IV NOW Sodium Chloride 0.9% [Saline Flush] Med 08/04/20 17:15 Active 10 ml FLUSH ASDIRECTED PRN Blood Culture x2 Reflex Set [OM.PC] Stat Oth 08/04/20 17:15 Ordered Saline Lock Insert [OM.PC] Stat Oth 06/15/21 17:15 Ordered EKG 12 Lead [EK] Stat Ther 08/04/20 17:15 Ordered Medication Orders Sodium Chloride (Normal Saline) 1,000 mls @ 126 mls/hr IV NOW STA Stop: 08/05/20 01:11 Last Admin: 08/04/20 17:45 Dose: 126 mls/hr Documented by: LEONELA Sodium Chloride (Sodium Chloride 0.9% 10 Ml Syringe) 10 ml FLUSH ASDIRECTED PRN PRN Reason: Keep Vein Open Last Admin: 08/04/20 17:35 Dose: 10 ml Documented by: LEONELA Labs: Laboratory Tests 08/04/20 08/04/20 08/04/20 Range/Units 17:30 17:30 17:30 WBC 7.98 (4.23-9.07) K/mm3 RBC 3.57 L (4.63-6.08) M/mm3 Hgb 10.8 L D (13.7-17.5) gm/dl Hct 32.0 L (40.1-51.0) % MCV 89.6 D (79.0-92.2) fl MCH 30.3 (25.7-32.2) pg MCHC 33.8 (32.2-35.5) g/dl RDW Std Deviation 46.6 H (35.1-43.9) fL Plt Count 174 (163-337) K/mm3 MPV 8.9 L (9.4-12.3) fl Neutrophils % (Manual) 85 H (40-60) % Band Neutrophils % 4 (0-10) % Lymphocytes % (Manual) 6 L (20-40) % Atypical Lymphs % 0 % Monocytes % (Manual) 5 (2-10) % Eosinophils % (Manual) 0 L (0.8-7.0) % Basophils % (Manual) 0 L (0.2-1.2) Platelet Estimate Adequate RBC Morph Comment Normal PT 18.3 H (9.7-12.0) SECONDS INR 1.73 Sodium 130 L D (136-145) mEq/L Potassium 3.5 (3.5-5.1) mEq/L Chloride 97 L (98-107) mEq/L Carbon Dioxide 23 (21-32) mEq/L Anion Gap 13.5 (5-15) BUN 28 H (7-18) mg/dL Creatinine 1.7 H (0.7-1.3) mg/dL Est Cr Clr Drug Dosing 42.48 mL/min Estimated GFR (MDRD) 40 (>60) mL/min BUN/Creatinine Ratio 16.5 (14-18) Glucose 139 H (70-99) mg/dL Lactic Acid (0.4-2.0) mmol/L Calcium 8.3 L (8.5-10.1) mg/dL Total Bilirubin 1.1 H (0.2-1.0) mg/dL AST 44 H (15-37) U/L ALT 34 (16-63) U/L Alkaline Phosphatase 121 H (46-116) U/L C-Reactive Protein 21.4 H* (<1.0) mg/dL Total Protein 7.2 (6.4-8.2) g/dl Albumin 3.2 L (3.4-5.0) g/dl Globulin 4.0 gm/dL Albumin/Globulin Ratio 0.8 L (1-2) Urine Color (Yellow) Urine Appearance (Clear) Urine pH (5.0-8.0) Ur Specific [place] (1.005-1.030) Urine Protein (Negative) Urine Glucose (UA) (Negative) Urine Ketones (Negative) Urine Occult Blood (Negative) Urine Nitrite (Negative) Urine Bilirubin (Negative) Urine Urobilinogen (0.2-1.0) Ur Leukocyte Esterase (Negative) Urine RBC (0-5) /hpf Urine WBC (0-5) /hpf Ur Squamous Epith Cells (0-5) /hpf Urine Bacteria (FEW) /hpf Urine Mucus (FEW) /hpf SARS-CoV-2 RNA (MERLE) (NEGATIVE) 08/04/20 08/04/20 08/04/20 Range/Units 17:30 18:10 18:20 WBC (4.23-9.07) K/mm3 RBC (4.63-6.08) M/mm3 Hgb (13.7-17.5) gm/dl Hct (40.1-51.0) % MCV (79.0-92.2) fl MCH (25.7-32.2) pg MCHC (32.2-35.5) g/dl RDW Std Deviation (35.1-43.9) fL Plt Count (163-337) K/mm3 MPV (9.4-12.3) fl Neutrophils % (Manual) (40-60) % Band Neutrophils % (0-10) % Lymphocytes % (Manual) (20-40) % Atypical Lymphs % % Monocytes % (Manual) (2-10) % Eosinophils % (Manual) (0.8-7.0) % Basophils % (Manual) (0.2-1.2) Platelet Estimate RBC Morph Comment PT (9.7-12.0) SECONDS INR Sodium (136-145) mEq/L Potassium (3.5-5.1) mEq/L Chloride (98-107) mEq/L Carbon Dioxide (21-32) mEq/L Anion Gap (5-15) BUN (7-18) mg/dL Creatinine (0.7-1.3) mg/dL Est Cr Clr Drug Dosing mL/min Estimated GFR (MDRD) (>60) mL/min BUN/Creatinine Ratio (14-18) Glucose (70-99) mg/dL Lactic Acid 0.9 (0.4-2.0) mmol/L Calcium (8.5-10.1) mg/dL Total Bilirubin (0.2-1.0) mg/dL AST (15-37) U/L ALT (16-63) U/L Alkaline Phosphatase (46-116) U/L C-Reactive Protein (<1.0) mg/dL Total Protein (6.4-8.2) g/dl Albumin (3.4-5.0) g/dl Globulin gm/dL Albumin/Globulin Ratio (1-2) Urine Color Yellow (Yellow) Urine Appearance Slt cloudy H (Clear) Urine pH 5.5 (5.0-8.0) Ur Specific [place] 1.025 (1.005-1.030) Urine Protein 3+ H (Negative) Urine Glucose (UA) Negative (Negative) Urine Ketones Negative (Negative) Urine Occult Blood 1+ H (Negative) Urine Nitrite Negative (Negative) Urine Bilirubin Negative (Negative) Urine Urobilinogen 1.0 (0.2-1.0) Ur Leukocyte Esterase Negative (Negative) Urine RBC 0-5 (0-5) /hpf Urine WBC 0-5 (0-5) /hpf Ur Squamous Epith Cells 0-5 (0-5) /hpf Urine Bacteria Moderate H (FEW) /hpf Urine Mucus Moderate H (FEW) /hpf SARS-CoV-2 RNA (MERLE) Negative (NEGATIVE) Meds: Medications Generic Name Dose Route Start Last Admin Trade Name Freq PRN Reason Stop Dose Admin Sodium Chloride 1,000 mls @ 126 mls/hr 08/04/20 17:15 08/04/20 17:45 Normal Saline IV 08/05/20 01:11 126 mls/hr NOW STA Administration Sodium Chloride 10 ml 08/04/20 17:15 08/04/20 17:35 Sodium Chloride 0.9% 10 Ml Syringe FLUSH 10 ml ASDIRECTED PRN Administration Keep Vein Open Discontinued Medications Generic Name Dose Route Start Last Admin Trade Name Freq PRN Reason Stop Dose Admin Acetaminophen 975 mg 08/04/20 17:20 08/04/20 17:42 Acetaminophen 325 Mg Tab PO 08/04/20 17:21 975 mg NOW ONE Administration Acetaminophen Confirm 08/04/20 17:38 08/04/20 17:45 Acetaminophen 325 Mg Tab Administered 08/04/20 17:39 Not Given Dose 975 mg .ROUTE .STK-MED ONE Acetaminophen Confirm 08/04/20 17:39 08/04/20 17:45 Acetaminophen 325 Mg Tab Administered 08/04/20 17:40 Not Given Dose 975 mg .ROUTE .STK-MED ONE Ceftriaxone Sodium 1 gm/ 100 mls @ 200 mls/hr 08/04/20 18:11 08/04/20 18:22 Sodium Chloride IV 08/04/20 18:40 200 mls/hr ONETIME ONE Administration - Re-Assessments/Exams Free Text/Narrative Re-Assessment/Exam: Patient is a 75-year-old male presenting to the emergency department with his with complaints of fever and disorientation. She reports he began to have a fever last evening. Today, he was talking to people who were not there. Patient has been having right-sided rib pain for the past 6 days. He was seen in this emergency department yesterday. Chest x-ray was completed that time and showed no evidence of pneumonia. also reports that he has had increased frequency of urination and patient states that he does have dysuria. Te mperature in triage was found to be elevated at 100.6 temp oral, however he feels warmer than that. Respiratory rate was increased as 32 and patient had a low oxygen saturation. At the time of triage, his oxygen saturation was 87 to 89% on room air. He was placed on 2 L of O2 and has been maintaining oxygenation in the low 90s. On exam, he does have crackles to the right lower lobe. Exam is otherwise unremarkable. Patient does rule in for SIRS criteria. I have ordered septic work-up including blood work, urinalysis, EKG, chest x- ray, and Covid test. We will start IV fluids of normal saline 126 mill per hour. Of also ordered Tylenol 975 mg to be given now. 08/04/20 1815 Chest x-ray shows an infiltrate in the right lower lobe. Hematology is still pending. I have ordered Rocephin 1 g IV to be given now. 08/04/20 19:15 Hematology was significant for hemoglobin low at 10.8, sodium low at 130, BUN 28, creatinine 1.7, total bili 1.1, AST 44, alkaline phosphatase 121, CRP 21.4. Urinalysis is negative for infection. Lactic acid is normal at 0.9. Patient does not meet criteria for severe sepsis based on this. Blood pressures have remained stable throughout his stay in ER. Covid screen is still pending. Once is available, I will speak with the hospitalist regarding admission. 08/04/20 20:10 Case was discussed with hospitalist, Dr. Ayon. He has accepted the patient for a dmission. Departure - Departure Time of Disposition: 20:10 Disposition: Admitted As Inpatient 68 Condition: Fair Clinical Impression: Pneumonia Qualifiers: Pneumonia type: due to unspecified organism Laterality: right Lung location: lower lobe of lung Qualified Code(s): J18.9 - Pneumonia, unspecified organism - Discharge Information Sepsis Event Note (ED) - Evaluation Sepsis Screening Result: Possible Sepsis Risk - Focused Exam Vital Signs: Vital Signs Temp Temp Pulse Resp BP Pulse Ox 08/04/20 17:42 101.4 F H 08/04/20 17:02 100.6 F 92 32 H 122/65 89 L - My Orders Last 24 Hours: My Active Orders 08/04/20 17:15 Chest 1V Frontal [CR] Stat Sodium Chloride 0.9% [Normal Saline] 1,000 ml IV NOW Sodium Chloride 0.9% [Saline Flush] 10 ml FLUSH ASDIRECTED PRN Blood Culture x2 Reflex Set [OM.PC] Stat Saline Lock Insert [OM.PC] Stat EKG 12 Lead [EK] Stat 08/04/20 17:30 CULTURE BLOOD [BC] Stat 08/04/20 17:40 CULTURE BLOOD [BC] Stat 08/04/20 18:10 Insert Hernandez Catheter [Insert Urinary Catheter] [OM.PC] Stat Urinary Catheter Assessment [RC] ASDIRECTED - Assessment/Plan Last 24 Hours: My Active Orders 08/04/20 17:15 Chest 1V Frontal [CR] Stat Sodium Chloride 0.9% [Normal Saline] 1,000 ml IV NOW Sodium Chloride 0.9% [Saline Flush] 10 ml FLUSH ASDIRECTED PRN Blood Culture x2 Reflex Set [OM.PC] Stat Saline Lock Insert [OM.PC] Stat EKG 12 Lead [EK] Stat 08/04/20 17:30 CULTURE BLOOD [BC] Stat 08/04/20 17:40 CULTURE BLOOD [BC] Stat 08/04/20 18:10 Insert Hernandez Catheter [Insert Urinary Catheter] [OM.PC] Stat Urinary Catheter Assessment [RC] ASDIRECTED
[2020-08-04] MEDS ORDERED: cefTRIAXone 1 GM in Sodium Chloride 0.9% 100 ML IV ONE ×2 (18:11→20:50)
[2020-08-04] MEDS ORDERED: Albuterol/Ipratropium 3.0-0.5 MG/3 ML Neb Soln NEB PRN (20:41)
[2020-08-04] MEDS ORDERED: Promethazine 12.5 MG in Sodium Chloride 0.9% 50 ML IV PRN (20:41)
[2020-08-04] MEDS ORDERED: Morphine 2 MG/ML SYRINGE IVPUSH PRN (20:41)
[2020-08-04] MEDS ORDERED: Docusate Sodium 100 MG Cap PO PRN (20:41)
[2020-08-04] MEDS ORDERED: Acetaminophen 650 MG Supp RECTAL PRN (20:41)
[2020-08-04] MEDS ORDERED: PILOCARPINE 5 MG PO SCH (21:00)
[2020-08-04] MEDS ORDERED: Warfarin 5 MG Tab PO SCH (21:00)
[2020-08-04] MEDS ORDERED: Azithromycin 500 MG in Sodium Chloride 0.9% 250 ML IV SCH (21:00)
--- NOTE | 2020-08-04 21:05 | PCM.HP.2 ---
H&P History of Present Illness - General Date of Service: 08/04/20 Admit Problem/Dx: Admission Diagnosis/Problem Admission Diagnosis/Problem Pneumonia Source of Information: Patient, Other (chart) - History of Present Illness Initial Comments - Free Text/Narative: Pt is a 75 year old male with a history of Parkinson's disease and HTN who was brought to the ER due to fever and confusion last night associated with mild SOB. He presented to the ER yesterday due to right-sided rib pain x 6 days. But CXR - no acute change. His also reported that he seems to have urinary frequency, urgency and dysuria. He also feels generalized weak. He has Parkinson's disease but is not taking meds for it. In the ER, he was found to have oxygen desaturation. CXR - RLL pneumonia. He is on warfarin but we do not know the reason why he is taking warfarin. - Related Data Allergies/Adverse Reactions: Allergies Allergy/AdvReac Type Severity Reaction Status Date / Time No Known Allergies Allergy Verified 08/04/20 16:57 Home Medications: Home Meds Amantadine [Symmetrel] 100 mg PO TID 05/02/17 [History] Metoprolol Tartrate 50 mg PO BID 05/02/17 [History] Potassium Chloride 10 meq PO BID 05/02/17 [History] Rosuvastatin [Crestor] 5 mg PO DAILY 05/02/17 [History] Tamsulosin [Flomax] 0.4 mg PO DAILY 05/02/17 [History] amLODIPine Besylate [Amlodipine Besylate] 10 mg PO DAILY 05/02/17 [History] hydroCHLOROthiazide [Hydrochlorothiazide] 25 mg PO DAILY 05/02/17 [History] Acetaminophen/Codeine [Tylenol with Codeine No.3 300MG/30MG] 1 tab PO Q4H PRN #20 tab 01/04/19 [Rx] Losartan [Cozaar] 100 mg PO DAILY 01/04/19 [History] Trihexyphenidyl [Artane] 2 mg PO TIDMEALS 01/04/19 [History] Warfarin [Coumadin] 7.5 mg PO MOWEFR 08/05/20 [History] Warfarin [Coumadin] 10 mg PO SUTUTHSA 08/05/20 [History] Past Medical History HEENT History: Reports: Other (See Below) Other HEENT History: tongue bleeding from coumadin Cardiovascular History: Reports: High Cholesterol, Hypertension, Other (See Below) Other Cardiovascular History: Valve replacement Respiratory History: Reports: None Gastrointestinal History: Reports: Hiatal Hernia, Other (See Below) Other Gastrointestinal History: abdominal hernia Genitourinary History: Reports: Renal Calculus Musculoskeletal History: Reports: Back Pain, Chronic Other Musculoskeletal History: back fracture Neurological History: Reports: Parkinson's 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 Psychiatric History: Reports: Anxiety Endocrine/Metabolic History: Reports: None Hematologic History: Reports: Anticoagulation Therapy, Blood Transfusion(s) Immunologic History: Reports: None Oncologic (Cancer) History: Reports: None Dermatologic History: Reports: None - Infectious Disease History Infectious Disease History: Reports: Chicken Pox, Measles, Mumps, Rubella, Shingles - Past Surgical History Head Surgeries/Procedures: Reports: None HEENT Surgical History: Reports: Oral Surgery GI Surgical History: Reports: Cholecystectomy Neurological Surgical History: Reports: Other (See Below) Musculoskeletal Surgical History: Reports: Other (See Below) Other Musculoskeletal Surgeries/Procedures:: jody/pins--back surgery. Social & Family History - Family History Family Medical History: No Pertinent Family History (denies genetic disease in family) - Tobacco Use Tobacco Use Status *Q: Never Tobacco User - Caffeine Use Caffeine Use: Reports: Coffee - Recreational Drug Use Recreational Drug Use: No - Living Situation & Occupation Living situation: Reports: Occupation: Retired H&P Review of Systems - Review of Systems: Review Of Systems: See Below (Positive for sob, weakness and confusion. All other system were reviewed and negative.) Exam - Exam Exam: See Below - Vital Signs Vital Signs: Last Vital Signs Temp 36.4 C 08/04/20 19:20 Pulse 92 08/04/20 17:02 Resp 32 H 08/04/20 17:02 BP 122/65 08/04/20 17:02 Pulse Ox 89 L 08/04/20 17:02 Weight: 87.997 kg - Exam General: Alert, Cooperative HEENT: Conjunctiva Clear, EOMI, Pupils Equal, Pupils Reactive, PERRLA Neck: Supple, Trachea Midline, Full Range of Motion Lungs: Normal Respiratory Effort, Crackles (RLL) Cardiovascular: Regular Rate, Regular Rhythm GI/Abdominal Exam: Normal Bowel Sounds, Soft, Non-Tender, No Organomegaly, No Distention Extremities: Normal Inspection, Normal Range of Motion, Non-Tender, No Pedal Edema Skin: Warm, Dry, Intact Neurological: Strength Equal Bilateral, Normal Speech, Normal Tone, Sensation Intact Neuro Extensive - Mental Status: Normal Mood/Affect Psychiatric: Normal Affect, Normal Mood - Patient Data Lab Results Last 24 hrs: Laboratory Results - last 24 hr 08/04/20 08/04/20 08/04/20 Range/Units 17:30 17:30 17:30 WBC 7.98 (4.23-9.07) K/mm3 RBC 3.57 L (4.63-6.08) M/mm3 Hgb 10.8 L D (13.7-17.5) gm/dl Hct 32.0 L (40.1-51.0) % MCV 89.6 D (79.0-92.2) fl MCH 30.3 (25.7-32.2) pg MCHC 33.8 (32.2-35.5) g/dl RDW Std Deviation 46.6 H (35.1-43.9) fL Plt Count 174 (163-337) K/mm3 MPV 8.9 L (9.4-12.3) fl Neutrophils % (Manual) 85 H (40-60) % Band Neutrophils % 4 (0-10) % Lymphocytes % (Manual) 6 L (20-40) % Atypical Lymphs % 0 % Monocytes % (Manual) 5 (2-10) % Eosinophils % (Manual) 0 L (0.8-7.0) % Basophils % (Manual) 0 L (0.2-1.2) Platelet Estimate Adequate RBC Morph Comment Normal PT 18.3 H (9.7-12.0) SECONDS INR 1.73 Sodium 130 L D (136-145) mEq/L Potassium 3.5 (3.5-5.1) mEq/L Chloride 97 L (98-107) mEq/L Carbon Dioxide 23 (21-32) mEq/L Anion Gap 13.5 (5-15) BUN 28 H (7-18) mg/dL Creatinine 1.7 H (0.7-1.3) mg/dL Est Cr Clr Drug Dosing 42.48 mL/min Estimated GFR (MDRD) 40 (>60) mL/min BUN/Creatinine Ratio 16.5 (14-18) Glucose 139 H (70-99) mg/dL Lactic Acid (0.4-2.0) mmol/L Calcium 8.3 L (8.5-10.1) mg/dL Total Bilirubin 1.1 H (0.2-1.0) mg/dL AST 44 H (15-37) U/L ALT 34 (16-63) U/L Alkaline Phosphatase 121 H (46-116) U/L C-Reactive Protein 21.4 H* (<1.0) mg/dL Total Protein 7.2 (6.4-8.2) g/dl Albumin 3.2 L (3.4-5.0) g/dl Globulin 4.0 gm/dL Albumin/Globulin Ratio 0.8 L (1-2) Urine Color (Yellow) Urine Appearance (Clear) Urine pH (5.0-8.0) Ur Specific [place] (1.005-1.030) Urine Protein (Negative) Urine Glucose (UA) (Negative) Urine Ketones (Negative) Urine Occult Blood (Negative) Urine Nitrite (Negative) Urine Bilirubin (Negative) Urine Urobilinogen (0.2-1.0) Ur Leukocyte Esterase (Negative) Urine RBC (0-5) /hpf Urine WBC (0-5) /hpf Ur Squamous Epith Cells (0-5) /hpf Urine Bacteria (FEW) /hpf Urine Mucus (FEW) /hpf SARS-CoV-2 RNA (MERLE) (NEGATIVE) 08/04/20 08/04/20 08/04/20 Range/Units 17:30 18:10 18:20 WBC (4.23-9.07) K/mm3 RBC (4.63-6.08) M/mm3 Hgb (13.7-17.5) gm/dl Hct (40.1-51.0) % MCV (79.0-92.2) fl MCH (25.7-32.2) pg MCHC (32.2-35.5) g/dl RDW Std Deviation (35.1-43.9) fL Plt Count (163-337) K/mm3 MPV (9.4-12.3) fl Neutrophils % (Manual) (40-60) % Band Neutrophils % (0-10) % Lymphocytes % (Manual) (20-40) % Atypical Lymphs % % Monocytes % (Manual) (2-10) % Eosinophils % (Manual) (0.8-7.0) % Basophils % (Manual) (0.2-1.2) Platelet Estimate RBC Morph Comment PT (9.7-12.0) SECONDS INR Sodium (136-145) mEq/L Potassium (3.5-5.1) mEq/L Chloride (98-107) mEq/L Carbon Dioxide (21-32) mEq/L Anion Gap (5-15) BUN (7-18) mg/dL Creatinine (0.7-1.3) mg/dL Est Cr Clr Drug Dosing mL/min Estimated GFR (MDRD) (>60) mL/min BUN/Creatinine Ratio (14-18) Glucose (70-99) mg/dL Lactic Acid 0.9 (0.4-2.0) mmol/L Calcium (8.5-10.1) mg/dL Total Bilirubin (0.2-1.0) mg/dL AST (15-37) U/L ALT (16-63) U/L Alkaline Phosphatase (46-116) U/L C-Reactive Protein (<1.0) mg/dL Total Protein (6.4-8.2) g/dl Albumin (3.4-5.0) g/dl Globulin gm/dL Albumin/Globulin Ratio (1-2) Urine Color Yellow (Yellow) Urine Appearance Slt cloudy H (Clear) Urine pH 5.5 (5.0-8.0) Ur Specific [place] 1.025 (1.005-1.030) Urine Protein 3+ H (Negative) Urine Glucose (UA) Negative (Negative) Urine Ketones Negative (Negative) Urine Occult Blood 1+ H (Negative) Urine Nitrite Negative (Negative) Urine Bilirubin Negative (Negative) Urine Urobilinogen 1.0 (0.2-1.0) Ur Leukocyte Esterase Negative (Negative) Urine RBC 0-5 (0-5) /hpf Urine WBC 0-5 (0-5) /hpf Ur Squamous Epith Cells 0-5 (0-5) /hpf Urine Bacteria Moderate H (FEW) /hpf Urine Mucus Moderate H (FEW) /hpf SARS-CoV-2 RNA (MERLE) Negative (NEGATIVE) Result Diagrams: 08/05/20 05:07 08/05/20 05:07 Sepsis Event Note - Evaluation Sepsis Screening Result: Sepsis Risk - Focused Exam Vital Signs: Vital Signs Temp Temp Pulse Resp BP Pulse Ox 08/04/20 19:20 36.4 C 08/04/20 17:42 38.6 C H 08/04/20 17:02 38.1 C 92 32 H 122/65 89 L Problem List Initiated/Reviewed/Updated: Yes Orders Last 24hrs: Active Orders 24 hr Category Date Time Status Patient Status [ADT] Routine ADT 08/04/20 20:11 Active Bedrest Bedside Commode [RC] ASDIRECTED Care 08/04/20 20:41 Ordered Cardiac Monitoring [RC] CONTINUOUS Care 08/04/20 20:42 Ordered Insert Hernandez Catheter [Insert Urinary Catheter] [OM.PC] Care 08/04/20 18:10 Ordered Stat Intake and Output [RC] QSHIFT Care 08/04/20 20:42 Ordered Oxygen Therapy [RC] PRN Care 08/04/20 20:41 Ordered Pulse Oximetry [RC] CONTINUOUS Care 08/04/20 20:42 Ordered RT Aerosol Therapy [RC] ASDIRECTED Care 08/04/20 20:45 Ordered Urinary Catheter Assessment [RC] ASDIRECTED Care 08/04/20 18:10 Active VTE/DVT Education [RC] PER UNIT ROUTINE Care 08/04/20 20:41 Ordered Vital Signs [RC] Q4H Care 08/04/20 20:41 Ordered OT Evaluation and Treatment [CONS] Routine Cons 08/04/20 20:41 Ordered PT Evaluation and Treatment [CONS] Routine Cons 08/04/20 20:41 Ordered CHANNELER OUTSOLE Evaluation and Treatment [CONS] Routine Cons 08/04/20 20:41 Ordered Regular Diet [DIET] Diet 08/04/20 Breakfast Ordered Chest 1V Frontal [CR] Stat Exams 08/04/20 17:15 Taken Chest wo Cont [CT] Routine Exams 08/04/20 20:37 Ordered CBC WITH AUTO DIFF [HEME] DAILY Lab 08/05/20 05:00 Ordered CBC WITH AUTO DIFF [HEME] DAILY Lab 08/06/20 05:00 Ordered CBC WITH AUTO DIFF [HEME] DAILY Lab 08/07/20 05:00 Ordered CBC WITH AUTO DIFF [HEME] DAILY Lab 08/08/20 05:00 Ordered CBC WITH AUTO DIFF [HEME] DAILY Lab 08/09/20 05:00 Ordered COMPREHENSIVE METABOLIC PN,CMP [CHEM] DAILY Lab 08/05/20 05:00 Ordered COMPREHENSIVE METABOLIC PN,CMP [CHEM] DAILY Lab 08/06/20 05:00 Ordered COMPREHENSIVE METABOLIC PN,CMP [CHEM] DAILY Lab 08/07/20 05:00 Ordered COMPREHENSIVE METABOLIC PN,CMP [CHEM] DAILY Lab 08/08/20 05:00 Ordered COMPREHENSIVE METABOLIC PN,CMP [CHEM] DAILY Lab 08/09/20 05:00 Ordered CULTURE BLOOD [BC] Stat Lab 08/04/20 17:30 Received CULTURE BLOOD [BC] Stat Lab 08/04/20 17:40 Received CULTURE MRSA [RM] Stat Lab 08/04/20 20:41 Ordered CULTURE SPUTUM + SMEAR [RM] Stat Lab 08/04/20 20:41 Ordered INR,PT,PROTHROMBIN TIME [COAG] DAILY Lab 08/05/20 05:00 Ordered INR,PT,PROTHROMBIN TIME [COAG] DAILY Lab 08/06/20 05:00 Ordered INR,PT,PROTHROMBIN TIME [COAG] DAILY Lab 08/07/20 05:00 Ordered INR,PT,PROTHROMBIN TIME [COAG] DAILY Lab 08/08/20 05:00 Ordered INR,PT,PROTHROMBIN TIME [COAG] DAILY Lab 08/09/20 05:00 Ordered INR,PT,PROTHROMBIN TIME [COAG] Routine Lab 08/04/20 20:57 Ordered MAGNESIUM [CHEM] Routine Lab 08/04/20 20:41 Ordered TROPONIN I [CHEM] Routine Lab 08/04/20 20:41 Ordered Acetaminophen [Tylenol] Med 08/04/20 20:41 Ordered 650 mg RECTAL Q6H PRN Albuterol/Ipratropium [DuoNeb 3.0-0.5 MG/3 ML] Med 08/04/20 20:41 Ordered 3 ml NEB Q4H PRN Amantadine [Symmetrel] Med 08/04/20 21:00 Ordered 100 mg PO TID Azithromycin [Zithromax] 500 mg Med 08/04/20 21:00 Ordered Sodium Chloride 0.9% [Normal Saline (AdvBag)] 250 ml IV Q24H Docusate Sodium [Colace] Med 08/04/20 20:41 Ordered 100 mg PO BID PRN Heparin Sodium Med 08/04/20 20:45 Ordered 5,000 units SUBCUT Q12H Lactated Ringers @ 100 MLS/HR(1000ml Bag) Med 08/04/20 20:45 Ordered Lactated Ringers [Ringers, Lactated] 1,000 ml IV ASDIRECTED Metoprolol Tartrate [Lopressor] Med 08/04/20 21:00 Ordered 50 mg PO BID Morphine Med 08/04/20 20:41 Ordered 2 mg IVPUSH Q4H PRN [place] Med 08/04/20 21:00 Ordered 5 mg PO DAILY Promethazine [Phenergan] 12.5 mg Med 08/04/20 20:41 Ordered Sodium Chloride 0.9% [Normal Saline] 50 ml IV Q6H Rosuvastatin [Crestor] Med 08/05/20 09:00 Ordered 5 mg PO DAILY Sodium Chloride 0.9% [Normal Saline] 1,000 ml Med 08/04/20 17:15 Active IV NOW Sodium Chloride 0.9% [Normal Saline] 1,000 ml Med 08/04/20 20:39 Ordered IV NOW Sodium Chloride 0.9% [Saline Flush] Med 08/04/20 17:15 Active 10 ml FLUSH ASDIRECTED PRN Tamsulosin [Flomax] Med 08/04/20 21:00 Ordered 0.4 mg PO DAILY Trihexyphenidyl Med 08/05/20 07:00 Ordered 2 mg PO TIDMEALS Warfarin [Coumadin] Med 08/04/20 21:00 Ordered 10 mg PO TU Warfarin [Coumadin] Med 08/05/20 20:53 Ordered 7.5 mg PO SUMOWETHFRSA amLODIPine [Norvasc] Med 08/05/20 09:00 Ordered 10 mg PO DAILY cefTRIAXone [Rocephin] 1 gm Med 08/04/20 20:50 Ordered Sodium Chloride 0.9% [Normal Saline] 100 ml IV ONETIME cefTRIAXone [Rocephin] 2 gm Med 08/05/20 09:00 Ordered Sodium Chloride 0.9% [Normal Saline] 100 ml IV Q24H Blood Culture x2 Reflex Set [OM.PC] Stat Oth 08/04/20 17:15 Ordered Saline Lock Insert [OM.PC] Stat Oth 08/04/20 17:15 Ordered EKG 12 Lead [EK] Stat Ther 08/04/20 17:15 Ordered Medication Orders Acetaminophen (Acetaminophen 650 Mg Supp) 650 mg RECTAL Q6H PRN PRN Reason: Pain (mild 1-3) Albuterol/Ipratropium (Albuterol/Ipratropium 3.0-0.5 Mg/3 Ml Neb Soln) 3 ml NEB Q4H PRN PRN Reason: Shortness Of Breath/wheezing Amlodipine Besylate (Amlodipine 10 Mg Tab) 10 mg PO DAILY CORNELIUS Docusate Sodium (Docusate Sodium 100 Mg Cap) 100 mg PO BID PRN PRN Reason: Constipation Heparin Sodium (Porcine) (Heparin Sodium 5,000 Units/Ml Vial) 5,000 units SUBCUT Q12H CORNELIUS Sodium Chloride (Normal Saline) 1,000 mls @ 126 mls/hr IV NOW STA Stop: 08/05/20 01:11 Last Admin: 08/04/20 17:45 Dose: 126 mls/hr Documented by: LEONELA Sodium Chloride (Normal Saline) 1,000 mls @ 200 mls/hr IV NOW STA Stop: 08/05/20 01:38 Lactated Ringer's (Ringers, Lactated) 1,000 mls @ 100 mls/hr IV ASDIRECTED [facility] Promethazine HCl 12.5 mg/ (Sodium Chloride) 50.5 mls @ 100 mls/hr IV Q6H PRN PRN Reason: Nausea/Vomiting Ceftriaxone Sodium 1 gm/ (Sodium Chloride) 100 mls @ 200 mls/hr IV ONETIME ONE Stop: 08/04/20 21:19 Ceftriaxone Sodium 2 gm/ (Sodium Chloride) 100 mls @ 200 mls/hr IV Q24H CORNELIUS Azithromycin 500 mg/ Sodium (Chloride) 250 mls @ 250 mls/hr IV Q24H CORNELIUS Metoprolol Tartrate (Metoprolol Tartrate 50 Mg Tab) 50 mg PO BID CORNELIUS Morphine Sulfate (Morphine 2 Mg/Ml Syringe) 2 mg IVPUSH Q4H PRN PRN Reason: Pain (severe 7-10) Stop: 08/05/20 20:44 Non-Formulary Medication (Amantadine [Symmetrel]) 100 mg PO TID [facility] Non-Formulary Medication (Pilocarpine) 5 mg PO DAILY CORNELIUS Non-Formulary Medication (Trihexyphenidyl) 2 mg PO TIDMEALS [facility] Rosuvastatin Calcium (Rosuvastatin 10 Mg Tab) 5 mg PO DAILY [facility] Sodium Chloride (Sodium Chloride 0.9% 10 Ml Syringe) 10 ml FLUSH ASDIRECTED PRN PRN Reason: Keep Vein Open Last Admin: 08/04/20 17:35 Dose: 10 ml Documented by: LEONELA Tamsulosin HCl (Tamsulosin 0.4 Mg Cap.Er) 0.4 mg PO BEDTIME [facility] Warfarin Sodium (Warfarin 5 Mg Tab) 7.5 mg PO SUMOWETHFRSA [facility] Warfarin Sodium (Warfarin 5 Mg Tab) 10 mg PO TU [facility] Assessment/Plan Comment:: Pt is a 75 year old male with a history of Parkinson's disease and HTN who was brought to the ER due to fever and confusion last night associated with mild SOB. Acute hypoxic respiratory failure Sepsis 2nd to pneumonia -Tachypnea, confusion -NS bolus 1L in the ER. NS 1L was ordered -Continue LR 100mg/hr -blood culture -Ceftriaxone and azithromycin AMS -Could be due to sepsis -CT of head -monitor Pnuemonia, CAP? -CXR - RLL pneumonia (formal report pending) -CT chest -sputum culture -MRSA screen -Ceftriaxone 2g iv daily and azithromycin 500mg iv daily Parkinson's disease -amantadine -PT/OT -Speech pathology to r/o dysphagia Chronic use of anticoagulation, warfarin -Reasons unknown -INR 1.73 -continue home warfarin -PT/INR daily, pharmacy to dose Anemia -MCV 89.6, MCHC 33.8 -repeat CBC daily in am Hyponatremia -repeat CMP in am JOCELYNE or JOCELYNE on CKD -creatinine 1.1 on 01/04/2019 -avoid nephrotoxic meds and contrast -repeat renal function in am -will do more workup if not improved Elevation of liver enzymes -AST 44, ALT 34, TBil 1.1, Alk phos 121 -could be due to sepsis or other -repeat liver function in am HTN -continue amlodipine 5mg daily and metoprolol 50mg bid -HCTZ 25mg daily and losartan 100mg daily are on hold -Hydralazine prn DVT prophylaxis: warfarin and heparin (will stop heparin once IRN reaches thereapeutic level) - Mortality Measure Prognosis:: Good
[2020-08-04] MEDS: Heparin Sodium 5,000 Units/ML Vial SUBCUT SCH (21:52)
[2020-08-04] MEDS: Metoprolol Tartrate 50 MG Tab PO SCH (21:53)
[2020-08-04] MEDS: Amantadine 100 MG Cap PO SCH (22:10)
[2020-08-05] MEDS: Lactated Ringers 1,000 ML IV SCH ×2 (03:30→13:45)
[2020-08-05] MEDS ORDERED: Vancomycin 1 GM, Vancomycin 500 MG in Sodium Chloride 0.9% 500 ML IV SCH (05:00)
[2020-08-05] MEDS: Acetaminophen 325 MG Tab PO PRN ×3 (06:52→23:57)
[2020-08-05 08:17] LABS: HEMOGLOBIN A1C 5.4 %
[2020-08-05] MEDS: Metoprolol Tartrate 50 MG Tab PO SCH (09:06)
[2020-08-05] MEDS: Amantadine 100 MG Cap PO SCH ×3 (09:06→20:18)
[2020-08-05] MEDS: Rosuvastatin 10 MG Tab PO SCH (09:06)
[2020-08-05] MEDS: Heparin Sodium 5,000 Units/ML Vial SUBCUT SCH ×2 (09:07→20:16)
[2020-08-05] MEDS: amLODIPine 10 MG Tab PO SCH (09:07)
[2020-08-05] MEDS: TRIHEXYPHENIDYL 2 MG PO SCH ×3 (09:18→18:11)
--- NOTE | 2020-08-05 09:47 | CR ---
Chest: Portable view of the chest was obtained. Comparison: Prior chest x-ray of 08/03/20. Heart is mildly enlarged. Pulmonary vessels are slightly congested. Prior sternotomy is noted. Prior lumbar spine surgery is seen. Impression: 1. Findings suspicious for mild CHF. 2. Other stable findings as noted above. Diagnostic code #3
[2020-08-05] MEDS ORDERED: Vancomycin 1 GM, Vancomycin 750 MG in Sodium Chloride 0.9% 500 ML IV ONE (10:00)
--- NOTE | 2020-08-05 10:32 | CT ---
CT chest Technique: Multiple axial sections were obtained from above the lung apices inferiorly through the lung bases. Intravenous contrast was not utilized. Findings: Heart is not enlarged. No pericardial effusion is seen. Thoracic aorta shows no aneurysm. Scattered lymph nodes are seen within the mediastinum. Largest lymph node is pretracheal measuring 2.5 cm. No axillary adenopathy is seen. Prior sternotomy is noted. Prosthetic mitral valve is seen. Small right-sided pleural effusion is noted. Minimal parenchymal densities are noted within both inferior lungs compatible with atelectasis versus minimal pneumonia. Small calcified nodule is noted within the right middle lobe. Compression deformity is seen within T6 as well as within L1. Previous fusion with trans-pedicle screws and rods are seen within the lumbar spine, this area was not included completely on the exam. Visualized upper abdomen shows several cysts within the right kidney. Very small nonobstructing stone is noted within the right kidney. Surgical clips are seen presumably from prior cholecystectomy. Impression: 1. Small right-sided pleural effusion. Consolidation within both posterior lung bases either due to atelectasis or minimal areas of pneumonia. 2. Prior sternotomy and prosthetic mitral valve. 3. Other nonacute findings as noted above. Diagnostic code #3 I agree with preliminary report from [facility], finalized on 08/04/20, 10:29 PM CDT, code 1
--- NOTE | 2020-08-05 10:37 | CT ---
Head CT Technique: Multiple axial sections through the brain were obtained. Intravenous contrast was not utilized. Reconstructed coronal and sagittal images were obtained. Comparison: No prior intracranial imaging is available. Findings: Ventricles along with basal cisterns and sulci over the convexities are mildly prominent. Minimal areas of diminished density are noted within portions of the periventricular white matter which is compatible with small vessel ischemic demyelination change. No other abnormal parenchymal densities are seen. No evidence of intracranial hemorrhage. Incidental note of mild basal ganglia calcification which is within normal limits. Bone window settings were reviewed. Right maxillary sinus contains a retention cyst measuring 1.3 cm. Other visualized paranasal sinuses show nothing acute. Visualized mastoid sinuses show nothing acute. No acute calvarial abnormality is appreciated. Impression: 1. Small incidental retention cyst within the right maxillary sinus. 2. Senescent change as noted above. 3. Nothing acute is appreciated on noncontrast head CT study. Diagnostic code #2
[2020-08-05] MEDS: Potassium Chloride 20 MEQ Tab.ER PO SCH ×2 (11:06→17:27)
--- NOTE | 2020-08-05 11:12 | PCM.PN ---
- General Info Date of Service: 08/05/20 Admission Dx/Problem (Free Text): Admission Diagnosis/Problem Admission Diagnosis/Problem Pneumonia Subjective Update: Pt is a 75 year old male with a history of Parkinson's disease and HTN who was brought to the ER due to fever and confusion last night associated with mild SOB. Pt does not have any new complaints. As per , his mentation improved Patient still has mild fever and he is on 1 L WBC 5.88 Platelets 141 Potassium 3.3, creatinine 1.5 Hemoglobin A1c 5.4 Blood culture were positive from all 4 bottles - Review of Systems General: Reports: Fever HEENT: Reports: No Symptoms Pulmonary: Reports: Shortness of Breath Cardiovascular: Reports: No Symptoms Gastrointestinal: Reports: No Symptoms Genitourinary: Reports: No Symptoms Musculoskeletal: Reports: No Symptoms Skin: Reports: No Symptoms Neurological: Reports: No Symptoms Psychiatric: Reports: No Symptoms - Patient Data Vitals - Most Recent: Last Vital Signs Temp 38.9 C H 08/05/20 07:21 Pulse 80 08/05/20 09:06 Resp 16 08/05/20 07:21 BP 118/57 L 08/05/20 09:07 Pulse Ox 91 L 08/05/20 07:21 Weight - Most Recent: 86.863 kg I&O - Last 24 Hours: Intake & Output 08/04/20 08/05/20 08/05/20 22:59 06:59 14:59 Intake Total 2300 320 Output Total 400 Balance @ 1900 320 Lab Results Last 24 Hours: Laboratory Results - last 24 hr 08/04/20 08/04/20 08/04/20 Range/Units 17:30 17:30 17:30 WBC 7.98 (4.23-9.07) K/mm3 RBC 3.57 L (4.63-6.08) M/mm3 Hgb 10.8 L D (13.7-17.5) gm/dl Hct 32.0 L (40.1-51.0) % MCV 89.6 D (79.0-92.2) fl MCH 30.3 (25.7-32.2) pg MCHC 33.8 (32.2-35.5) g/dl RDW Std Deviation 46.6 H (35.1-43.9) fL Plt Count 174 (163-337) K/mm3 MPV 8.9 L (9.4-12.3) fl Neut % (Auto) (34.0-67.9) % Lymph % (Auto) (21.8-53.1) % George % (Auto) (5.3-12.2) % Eos % (Auto) (0.8-7.0) Baso % (Auto) (0.1-1.2) % Neut # (Auto) (1.78-5.38) K/mm3 Lymph # (Auto) (1.32-3.57) K/mm3 George # (Auto) (0.30-0.82) K/mm3 Eos # (Auto) (0.04-0.54) K/mm3 Baso # (Auto) (0.01-0.08) K/mm3 Neutrophils % (Manual) 85 H (40-60) % Band Neutrophils % 4 (0-10) % Lymphocytes % (Manual) 6 L (20-40) % Atypical Lymphs % 0 % Monocytes % (Manual) 5 (2-10) % Eosinophils % (Manual) 0 L (0.8-7.0) % Basophils % (Manual) 0 L (0.2-1.2) Manual Slide Review Platelet Estimate Adequate RBC Morph Comment Normal PT 18.3 H (9.7-12.0) SECONDS INR 1.73 Sodium 130 L D (136-145) mEq/L Potassium 3.5 (3.5-5.1) mEq/L Chloride 97 L (98-107) mEq/L Carbon Dioxide 23 (21-32) mEq/L Anion Gap 13.5 (5-15) BUN 28 H (7-18) mg/dL Creatinine 1.7 H (0.7-1.3) mg/dL Est Cr Clr Drug Dosing 42.48 mL/min Estimated GFR (MDRD) 40 (>60) mL/min BUN/Creatinine Ratio 16.5 (14-18) Glucose 139 H (70-99) mg/dL Hemoglobin A1c ( - 5.6) % Lactic Acid (0.4-2.0) mmol/L Calcium 8.3 L (8.5-10.1) mg/dL Magnesium (1.8-2.4) mg/dL Total Bilirubin 1.1 H (0.2-1.0) mg/dL AST 44 H (15-37) U/L ALT 34 (16-63) U/L Alkaline Phosphatase 121 H (46-116) U/L Troponin I (0.00-0.056) ng/mL C-Reactive Protein 21.4 H* (<1.0) mg/dL Total Protein 7.2 (6.4-8.2) g/dl Albumin 3.2 L (3.4-5.0) g/dl Globulin 4.0 gm/dL Albumin/Globulin Ratio 0.8 L (1-2) Urine Color (Yellow) Urine Appearance (Clear) Urine pH (5.0-8.0) Ur Specific [place] (1.005-1.030) Urine Protein (Negative) Urine Glucose (UA) (Negative) Urine Ketones (Negative) Urine Occult Blood (Negative) Urine Nitrite (Negative) Urine Bilirubin (Negative) Urine Urobilinogen (0.2-1.0) Ur Leukocyte Esterase (Negative) Urine RBC (0-5) /hpf Urine WBC (0-5) /hpf Ur Squamous Epith Cells (0-5) /hpf Urine Bacteria (FEW) /hpf Urine Mucus (FEW) /hpf SARS-CoV-2 RNA (MERLE) (NEGATIVE) MRSA (PCR) 08/04/20 08/04/20 08/04/20 Range/Units 17:30 17:30 18:10 WBC (4.23-9.07) K/mm3 RBC (4.63-6.08) M/mm3 Hgb (13.7-17.5) gm/dl Hct (40.1-51.0) % MCV (79.0-92.2) fl MCH (25.7-32.2) pg MCHC (32.2-35.5) g/dl RDW Std Deviation (35.1-43.9) fL Plt Count (163-337) K/mm3 MPV (9.4-12.3) fl Neut % (Auto) (34.0-67.9) % Lymph % (Auto) (21.8-53.1) % George % (Auto) (5.3-12.2) % Eos % (Auto) (0.8-7.0) Baso % (Auto) (0.1-1.2) % Neut # (Auto) (1.78-5.38) K/mm3 Lymph # (Auto) (1.32-3.57) K/mm3 George # (Auto) (0.30-0.82) K/mm3 Eos # (Auto) (0.04-0.54) K/mm3 Baso # (Auto) (0.01-0.08) K/mm3 Neutrophils % (Manual) (40-60) % Band Neutrophils % (0-10) % Lymphocytes % (Manual) (20-40) % Atypical Lymphs % % Monocytes % (Manual) (2-10) % Eosinophils % (Manual) (0.8-7.0) % Basophils % (Manual) (0.2-1.2) Manual Slide Review Platelet Estimate RBC Morph Comment PT (9.7-12.0) SECONDS INR Sodium (136-145) mEq/L Potassium (3.5-5.1) mEq/L Chloride (98-107) mEq/L Carbon Dioxide (21-32) mEq/L Anion Gap (5-15) BUN (7-18) mg/dL Creatinine (0.7-1.3) mg/dL Est Cr Clr Drug Dosing mL/min Estimated GFR (MDRD) (>60) mL/min BUN/Creatinine Ratio (14-18) Glucose (70-99) mg/dL Hemoglobin A1c ( - 5.6) % Lactic Acid 0.9 (0.4-2.0) mmol/L Calcium (8.5-10.1) mg/dL Magnesium 1.7 L (1.8-2.4) mg/dL Total Bilirubin (0.2-1.0) mg/dL AST (15-37) U/L ALT (16-63) U/L Alkaline Phosphatase (46-116) U/L Troponin I 0.028 (0.00-0.056) ng/mL C-Reactive Protein (<1.0) mg/dL Total Protein (6.4-8.2) g/dl Albumin (3.4-5.0) g/dl Globulin gm/dL Albumin/Globulin Ratio (1-2) Urine Color Yellow (Yellow) Urine Appearance Slt cloudy H (Clear) Urine pH 5.5 (5.0-8.0) Ur Specific [place] 1.025 (1.005-1.030) Urine Protein 3+ H (Negative) Urine Glucose (UA) Negative (Negative) Urine Ketones Negative (Negative) Urine Occult Blood 1+ H (Negative) Urine Nitrite Negative (Negative) Urine Bilirubin Negative (Negative) Urine Urobilinogen 1.0 (0.2-1.0) Ur Leukocyte Esterase Negative (Negative) Urine RBC 0-5 (0-5) /hpf Urine WBC 0-5 (0-5) /hpf Ur Squamous Epith Cells 0-5 (0-5) /hpf Urine Bacteria Moderate H (FEW) /hpf Urine Mucus Moderate H (FEW) /hpf SARS-CoV-2 RNA (MERLE) (NEGATIVE) MRSA (PCR) 08/04/20 08/04/20 08/05/20 Range/Units 18:20 22:18 05:07 WBC 5.88 (4.23-9.07) K/mm3 RBC 3.50 L (4.63-6.08) M/mm3 Hgb 10.5 L (13.7-17.5) gm/dl Hct 31.5 L (40.1-51.0) % MCV 90.0 (79.0-92.2) fl MCH 30.0 (25.7-32.2) pg MCHC 33.3 (32.2-35.5) g/dl RDW Std Deviation 46.4 H (35.1-43.9) fL Plt Count 141 L (163-337) K/mm3 MPV 9.2 L (9.4-12.3) fl Neut % (Auto) 86.8 H (34.0-67.9) % Lymph % (Auto) 8.2 L (21.8-53.1) % George % (Auto) 4.8 L (5.3-12.2) % Eos % (Auto) 0 L (0.8-7.0) Baso % (Auto) 0.2 (0.1-1.2) % Neut # (Auto) 5.11 (1.78-5.38) K/mm3 Lymph # (Auto) 0.48 L (1.32-3.57) K/mm3 George # (Auto) 0.28 L (0.30-0.82) K/mm3 Eos # (Auto) 0.00 L (0.04-0.54) K/mm3 Baso # (Auto) 0.01 (0.01-0.08) K/mm3 Neutrophils % (Manual) (40-60) % Band Neutrophils % (0-10) % Lymphocytes % (Manual) (20-40) % Atypical Lymphs % % Monocytes % (Manual) (2-10) % Eosinophils % (Manual) (0.8-7.0) % Basophils % (Manual) (0.2-1.2) Manual Slide Review Abnormal smear Platelet Estimate RBC Morph Comment PT (9.7-12.0) SECONDS INR Sodium (136-145) mEq/L Potassium (3.5-5.1) mEq/L Chloride (98-107) mEq/L Carbon Dioxide (21-32) mEq/L Anion Gap (5-15) BUN (7-18) mg/dL Creatinine (0.7-1.3) mg/dL Est Cr Clr Drug Dosing mL/min Estimated GFR (MDRD) (>60) mL/min BUN/Creatinine Ratio (14-18) Glucose (70-99) mg/dL Hemoglobin A1c ( - 5.6) % Lactic Acid (0.4-2.0) mmol/L Calcium (8.5-10.1) mg/dL Magnesium (1.8-2.4) mg/dL Total Bilirubin (0.2-1.0) mg/dL AST (15-37) U/L ALT (16-63) U/L Alkaline Phosphatase (46-116) U/L Troponin I (0.00-0.056) ng/mL C-Reactive Protein (<1.0) mg/dL Total Protein (6.4-8.2) g/dl Albumin (3.4-5.0) g/dl Globulin gm/dL Albumin/Globulin Ratio (1-2) Urine Color (Yellow) Urine Appearance (Clear) Urine pH (5.0-8.0) Ur Specific [place] (1.005-1.030) Urine Protein (Negative) Urine Glucose (UA) (Negative) Urine Ketones (Negative) Urine Occult Blood (Negative) Urine Nitrite (Negative) Urine Bilirubin (Negative) Urine Urobilinogen (0.2-1.0) Ur Leukocyte Esterase (Negative) Urine RBC (0-5) /hpf Urine WBC (0-5) /hpf Ur Squamous Epith Cells (0-5) /hpf Urine Bacteria (FEW) /hpf Urine Mucus (FEW) /hpf SARS-CoV-2 RNA (MERLE) Negative (NEGATIVE) MRSA (PCR) Negative 08/05/20 08/05/20 08/05/20 Range/Units 05:07 05:07 05:07 WBC (4.23-9.07) K/mm3 RBC (4.63-6.08) M/mm3 Hgb (13.7-17.5) gm/dl Hct (40.1-51.0) % MCV (79.0-92.2) fl MCH (25.7-32.2) pg MCHC (32.2-35.5) g/dl RDW Std Deviation (35.1-43.9) fL Plt Count (163-337) K/mm3 MPV (9.4-12.3) fl Neut % (Auto) (34.0-67.9) % Lymph % (Auto) (21.8-53.1) % George % (Auto) (5.3-12.2) % Eos % (Auto) (0.8-7.0) Baso % (Auto) (0.1-1.2) % Neut # (Auto) (1.78-5.38) K/mm3 Lymph # (Auto) (1.32-3.57) K/mm3 George # (Auto) (0.30-0.82) K/mm3 Eos # (Auto) (0.04-0.54) K/mm3 Baso # (Auto) (0.01-0.08) K/mm3 Neutrophils % (Manual) (40-60) % Band Neutrophils % (0-10) % Lymphocytes % (Manual) (20-40) % Atypical Lymphs % % Monocytes % (Manual) (2-10) % Eosinophils % (Manual) (0.8-7.0) % Basophils % (Manual) (0.2-1.2) Manual Slide Review Platelet Estimate RBC Morph Comment PT 18.2 H (9.7-12.0) SECONDS INR 1.72 Sodium 136 (136-145) mEq/L Potassium 3.3 L (3.5-5.1) mEq/L Chloride 102 (98-107) mEq/L Carbon Dioxide 23 (21-32) mEq/L Anion Gap 14.3 (5-15) BUN 27 H (7-18) mg/dL Creatinine 1.5 H (0.7-1.3) mg/dL Est Cr Clr Drug Dosing 48.14 mL/min Estimated GFR (MDRD) 46 (>60) mL/min BUN/Creatinine Ratio 18.0 (14-18) Glucose 103 H (70-99) mg/dL Hemoglobin A1c 5.4 ( - 5.6) % Lactic Acid (0.4-2.0) mmol/L Calcium 8.0 L (8.5-10.1) mg/dL Magnesium 2.2 (1.8-2.4) mg/dL Total Bilirubin 0.6 (0.2-1.0) mg/dL AST 61 H (15-37) U/L ALT 45 (16-63) U/L Alkaline Phosphatase 116 (46-116) U/L Troponin I (0.00-0.056) ng/mL C-Reactive Protein (<1.0) mg/dL Total Protein 6.5 (6.4-8.2) g/dl Albumin 2.8 L (3.4-5.0) g/dl Globulin 3.7 gm/dL Albumin/Globulin Ratio 0.8 L (1-2) Urine Color (Yellow) Urine Appearance (Clear) Urine pH (5.0-8.0) Ur Specific [place] (1.005-1.030) Urine Protein (Negative) Urine Glucose (UA) (Negative) Urine Ketones (Negative) Urine Occult Blood (Negative) Urine Nitrite (Negative) Urine Bilirubin (Negative) Urine Urobilinogen (0.2-1.0) Ur Leukocyte Esterase (Negative) Urine RBC (0-5) /hpf Urine WBC (0-5) /hpf Ur Squamous Epith Cells (0-5) /hpf Urine Bacteria (FEW) /hpf Urine Mucus (FEW) /hpf SARS-CoV-2 RNA (MERLE) (NEGATIVE) MRSA (PCR) Anton Results Last 24 Hours: Microbiology 08/04/20 17:30 Aerobic Blood Culture - Preliminary Blood - Venous Gram Positive [facility] Ana[facility] Blood Culture - Preliminary Gram Positive [facility] 08/04/20 17:40 Aerobic Blood Culture - Preliminary Blood - Venous - Lab Draw Gram Positive [facility] Anaerobic Blood Culture - Preliminary Gram Positive Cocci In [facility] Med Orders - Current: Current Medications Acetaminophen (Acetaminophen 325 Mg Tab) 650 mg PO Q6H PRN PRN Reason: Pain/Fever Last Admin: 08/05/20 06:52 Dose: 650 mg Documented by: Albuterol/Ipratropium (Albuterol/Ipratropium 3.0-0.5 Mg/3 Ml Neb Soln) 3 ml NEB Q4H PRN PRN Reason: Shortness Of Breath/wheezing Amantadine HCl (Amantadine 100 Mg Cap) 100 mg PO TID [facility] Last Admin: 08/05/20 09:06 Dose: 100 mg Documented by: Amlodipine Besylate (Amlodipine 10 Mg Tab) 10 mg PO DAILY [facility] Last Admin: 08/05/20 09:07 Dose: 10 mg Documented by: Docusate Sodium (Docusate Sodium 100 Mg Cap) 100 mg PO BID PRN PRN Reason: Constipation Heparin Sodium (Porcine) (Heparin Sodium 5,000 Units/Ml Vial) 5,000 units SUBCUT Q12H [facility] Last Admin: 08/05/20 09:07 Dose: 5,000 units Documented by: Sodium Chloride (Normal Saline) 1,000 mls @ 200 mls/hr IV NOW STA Stop: 08/05/20 01:38 Last Admin: 08/04/20 22:14 Dose: 200 mls/hr Documented by: Lactated Ringer's (Ringers, Lactated) 1,000 mls @ 100 mls/hr IV ASDIRECTED [facility] Last Admin: 08/05/20 03:30 Dose: 100 mls/hr Documented by: Promethazine HCl 12.5 mg/ (Sodium Chloride) 50.5 mls @ 100 mls/hr IV Q6H PRN PRN Reason: Nausea/Vomiting Ceftriaxone Sodium 2 gm/ (Sodium Chloride) 100 mls @ 200 mls/hr IV Q24H [facility] Vancomycin HCl 1 gm/Vancomycin HCl 750 mg/ Sodium Chloride 500 mls @ 250 mls/hr IV ONETIME ONE Stop: 08/05/20 11:59 Last Admin: 08/05/20 11:05 Dose: 250 mls/hr Documented by: Vancomycin HCl 1 gm/Vancomycin HCl 500 mg/ Sodium Chloride 500 mls @ 250 mls/hr IV Q18H [facility] Metoprolol Tartrate (Metoprolol Tartrate 50 Mg Tab) 50 mg PO BID [facility] Last Admin: 08/05/20 09:06 Dose: 50 mg Documented by: Morphine Sulfate (Morphine 2 Mg/Ml Syringe) 2 mg IVPUSH Q4H PRN PRN Reason: Pain (severe 7-10) Stop: 08/05/20 20:44 Trihexyphenidyl 2 Mg (Tablet Ptom) 0 mg PO TIDMEALS [facility] Last Admin: 08/05/20 11:06 Dose: 2 mg Documented by: Potassium Chloride (Potassium Chloride 20 Meq Tab.Er) 20 meq PO TIDMEALS [facility] Stop: 08/06/20 07:01 Last Admin: 08/05/20 11:06 Dose: 20 meq Documented by: Rosuvastatin Calcium (Rosuvastatin 10 Mg Tab) 5 mg PO DAILY [facility] Last Admin: 08/05/20 09:06 Dose: 5 mg Documented by: Sodium Chloride (Sodium Chloride 0.9% 10 Ml Syringe) 10 ml FLUSH ASDIRECTED PRN PRN Reason: Keep Vein Open Last Admin: 08/04/20 17:35 Dose: 10 ml Documented by: Tamsulosin HCl (Tamsulosin 0.4 Mg Cap.Er) 0.4 mg PO BEDTIME [facility] Vancomycin HCl (Pharmacy To Dose - Vancomycin) 1 dose .XX DAILY PRN PRN Reason: RX TO DOSE VANCO Warfarin Sodium (Pharmacy To Dose - Warfarin) 1 dose PO ASDIRECTED PRN PRN Reason: RX TO DOSE WARFARIN Warfarin Sodium (Warfarin 5 Mg Tab) 10 mg PO QPM [facility] Stop: 08/05/20 18:01 Discontinued Medications Acetaminophen (Acetaminophen 325 Mg Tab) 975 mg PO NOW ONE Stop: 08/04/20 17:21 Last Admin: 08/04/20 17:42 Dose: 975 mg Documented by: Acetaminophen (Acetaminophen 325 Mg Tab) Confirm Administered Dose 975 mg .ROUTE .STK-MED ONE Stop: 08/04/20 17:39 Last Admin: 08/04/20 17:45 Dose: Not Given Documented by: Acetaminophen (Acetaminophen 325 Mg Tab) Confirm Administered Dose 975 mg .ROUTE .STK-MED ONE Stop: 08/04/20 17:40 Last Admin: 08/04/20 17:45 Dose: Not Given Documented by: Acetaminophen (Acetaminophen 650 Mg Supp) 650 mg RECTAL Q6H PRN PRN Reason: Pain (mild 1-3) Last Admin: 08/05/20 00:31 Dose: 650 mg Documented by: Sodium Chloride (Normal Saline) 1,000 mls @ 126 mls/hr IV NOW STA Stop: 08/05/20 01:11 Last Admin: 08/04/20 17:45 Dose: 126 mls/hr Documented by: Ceftriaxone Sodium 1 gm/ (Sodium Chloride) 100 mls @ 200 mls/hr IV ONETIME ONE Stop: 08/04/20 18:40 Last Admin: 08/04/20 18:22 Dose: 200 mls/hr Documented by: Ceftriaxone Sodium 1 gm/ (Sodium Chloride) 100 mls @ 200 mls/hr IV ONETIME ONE Stop: 08/04/20 21:19 Last Admin: 08/04/20 21:50 Dose: 200 mls/hr Documented by: Azithromycin 500 mg/ Sodium (Chloride) 250 mls @ 250 mls/hr IV Q24H [facility] Last Admin: 08/04/20 21:30 Dose: 250 mls/hr Documented by: Magnesium Sulfate/Dextrose 1 (gm/ Premix) 100 mls @ 100 mls/hr IV ONETIME ONE Stop: 08/05/20 00:20 Last Admin: 08/04/20 23:33 Dose: 100 mls/hr Documented by: Non-Formulary Medication (Pilocarpine) 5 mg PO DAILY [facility] Last Admin: 08/05/20 08:51 Dose: Not Given Documented by: - Exam Urinary Catheter Total Time: 0Days 0Hours Physical Findings Comments:: General: Alert, Cooperative HEENT: Conjunctiva Clear, EOMI, Pupils Equal, Pupils Reactive, PERRLA Neck: Supple, Trachea Midline, Full Range of Motion Lungs: Normal Respiratory Effort, Crackles (RLL) Cardiovascular: Regular Rate, Regular Rhythm GI/Abdominal Exam: Normal Bowel Sounds, Soft, Non-Tender, No Organomegaly, No Distention Extremities: Normal Inspection, Normal Range of Motion, Non-Tender, No Pedal Edema Skin: Warm, Dry, Intact Neurological: Strength Equal Bilateral, Normal Speech, Normal Tone, Sensation Intact Neuro Extensive - Mental Status: Normal Mood/Affect Psychiatric: Normal Affect, Normal Mood - Patient Data Lab Results Last 24 hrs: Laboratory Results - last 24 hr 08/04/20 08/04/20 08/04/20 Range/Units 17:30 17:30 17:30 WBC 7.98 (4.23-9.07) K/mm3 RBC 3.57 L (4.63-6.08) M/mm3 Hgb 10.8 L D (13.7-17.5) gm/dl Hct 32.0 L (40.1-51.0) % MCV 89.6 D (79.0-92.2) fl MCH 30.3 (25.7-32.2) pg MCHC 33.8 (32.2-35.5) g/dl RDW Std Deviation 46.6 H (35.1-43.9) fL Plt Count 174 (163-337) K/mm3 MPV 8.9 L (9.4-12.3) fl Neut % (Auto) (34.0-67.9) % Lymph % (Auto) (21.8-53.1) % George % (Auto) (5.3-12.2) % Eos % (Auto) (0.8-7.0) Baso % (Auto) (0.1-1.2) % Neut # (Auto) (1.78-5.38) K/mm3 Lymph # (Auto) (1.32-3.57) K/mm3 George # (Auto) (0.30-0.82) K/mm3 Eos # (Auto) (0.04-0.54) K/mm3 Baso # (Auto) (0.01-0.08) K/mm3 Neutrophils % (Manual) 85 H (40-60) % Band Neutrophils % 4 (0-10) % Lymphocytes % (Manual) 6 L (20-40) % Atypical Lymphs % 0 % Monocytes % (Manual) 5 (2-10) % Eosinophils % (Manual) 0 L (0.8-7.0) % Basophils % (Manual) 0 L (0.2-1.2) Manual Slide Review Platelet Estimate Adequate RBC Morph Comment Normal PT 18.3 H (9.7-12.0) SECONDS INR 1.73 Sodium 130 L D (136-145) mEq/L Potassium 3.5 (3.5-5.1) mEq/L Chloride 97 L (98-107) mEq/L Carbon Dioxide 23 (21-32) mEq/L Anion Gap 13.5 (5-15) BUN 28 H (7-18) mg/dL Creatinine 1.7 H (0.7-1.3) mg/dL Est Cr Clr Drug Dosing 42.48 mL/min Estimated GFR (MDRD) 40 (>60) mL/min BUN/Creatinine Ratio 16.5 (14-18) Glucose 139 H (70-99) mg/dL Hemoglobin A1c ( - 5.6) % Lactic Acid (0.4-2.0) mmol/L Calcium 8.3 L (8.5-10.1) mg/dL Magnesium (1.8-2.4) mg/dL Total Bilirubin 1.1 H (0.2-1.0) mg/dL AST 44 H (15-37) U/L ALT 34 (16-63) U/L Alkaline Phosphatase 121 H (46-116) U/L Troponin I (0.00-0.056) ng/mL C-Reactive Protein 21.4 H* (<1.0) mg/dL Total Protein 7.2 (6.4-8.2) g/dl Albumin 3.2 L (3.4-5.0) g/dl Globulin 4.0 gm/dL Albumin/Globulin Ratio 0.8 L (1-2) Urine Color (Yellow) Urine Appearance (Clear) Urine pH (5.0-8.0) Ur Specific [place] (1.005-1.030) Urine Protein (Negative) Urine Glucose (UA) (Negative) Urine Ketones (Negative) Urine Occult Blood (Negative) Urine Nitrite (Negative) Urine Bilirubin (Negative) Urine Urobilinogen (0.2-1.0) Ur Leukocyte Esterase (Negative) Urine RBC (0-5) /hpf Urine WBC (0-5) /hpf Ur Squamous Epith Cells (0-5) /hpf Urine Bacteria (FEW) /hpf Urine Mucus (FEW) /hpf SARS-CoV-2 RNA (MERLE) (NEGATIVE) MRSA (PCR) 08/04/20 08/04/20 08/04/20 Range/Units 17:30 17:30 18:10 WBC (4.23-9.07) K/mm3 RBC (4.63-6.08) M/mm3 Hgb (13.7-17.5) gm/dl Hct (40.1-51.0) % MCV (79.0-92.2) fl MCH (25.7-32.2) pg MCHC (32.2-35.5) g/dl RDW Std Deviation (35.1-43.9) fL Plt Count (163-337) K/mm3 MPV (9.4-12.3) fl Neut % (Auto) (34.0-67.9) % Lymph % (Auto) (21.8-53.1) % George % (Auto) (5.3-12.2) % Eos % (Auto) (0.8-7.0) Baso % (Auto) (0.1-1.2) % Neut # (Auto) (1.78-5.38) K/mm3 Lymph # (Auto) (1.32-3.57) K/mm3 George # (Auto) (0.30-0.82) K/mm3 Eos # (Auto) (0.04-0.54) K/mm3 Baso # (Auto) (0.01-0.08) K/mm3 Neutrophils % (Manual) (40-60) % Band Neutrophils % (0-10) % Lymphocytes % (Manual) (20-40) % Atypical Lymphs % % Monocytes % (Manual) (2-10) % Eosinophils % (Manual) (0.8-7.0) % Basophils % (Manual) (0.2-1.2) Manual Slide Review Platelet Estimate RBC Morph Comment PT (9.7-12.0) SECONDS INR Sodium (136-145) mEq/L Potassium (3.5-5.1) mEq/L Chloride (98-107) mEq/L Carbon Dioxide (21-32) mEq/L Anion Gap (5-15) BUN (7-18) mg/dL Creatinine (0.7-1.3) mg/dL Est Cr Clr Drug Dosing mL/min Estimated GFR (MDRD) (>60) mL/min BUN/Creatinine Ratio (14-18) Glucose (70-99) mg/dL Hemoglobin A1c ( - 5.6) % Lactic Acid 0.9 (0.4-2.0) mmol/L Calcium (8.5-10.1) mg/dL Magnesium 1.7 L (1.8-2.4) mg/dL Total Bilirubin (0.2-1.0) mg/dL AST (15-37) U/L ALT (16-63) U/L Alkaline Phosphatase (46-116) U/L Troponin I 0.028 (0.00-0.056) ng/mL C-Reactive Protein (<1.0) mg/dL Total Protein (6.4-8.2) g/dl Albumin (3.4-5.0) g/dl Globulin gm/dL Albumin/Globulin Ratio (1-2) Urine Color Yellow (Yellow) Urine Appearance Slt cloudy H (Clear) Urine pH 5.5 (5.0-8.0) Ur Specific [place] 1.025 (1.005-1.030) Urine Protein 3+ H (Negative) Urine Glucose (UA) Negative (Negative) Urine Ketones Negative (Negative) Urine Occult Blood 1+ H (Negative) Urine Nitrite Negative (Negative) Urine Bilirubin Negative (Negative) Urine Urobilinogen 1.0 (0.2-1.0) Ur Leukocyte Esterase Negative (Negative) Urine RBC 0-5 (0-5) /hpf Urine WBC 0-5 (0-5) /hpf Ur Squamous Epith Cells 0-5 (0-5) /hpf Urine Bacteria Moderate H (FEW) /hpf Urine Mucus Moderate H (FEW) /hpf SARS-CoV-2 RNA ([facility]) (NEGATIVE) MRSA (PCR) 08/04/20 08/04/20 08/05/20 Range/Units 18:20 22:18 05:07 WBC 5.88 (4.23-9.07) K/mm3 RBC 3.50 L (4.63-6.08) M/mm3 Hgb 10.5 L (13.7-17.5) gm/dl Hct 31.5 L (40.1-51.0) % MCV 90.0 (79.0-92.2) fl MCH 30.0 (25.7-32.2) pg MCHC 33.3 (32.2-35.5) g/dl RDW Std Deviation 46.4 H (35.1-43.9) fL Plt Count 141 L (163-337) K/mm3 MPV 9.2 L (9.4-12.3) fl Neut % (Auto) 86.8 H (34.0-67.9) % Lymph % (Auto) 8.2 L (21.8-53.1) % George % (Auto) 4.8 L (5.3-12.2) % Eos % (Auto) 0 L (0.8-7.0) Baso % (Auto) 0.2 (0.1-1.2) % Neut # (Auto) 5.11 (1.78-5.38) K/mm3 Lymph # (Auto) 0.48 L (1.32-3.57) K/mm3 George # (Auto) 0.28 L (0.30-0.82) K/mm3 Eos # (Auto) 0.00 L (0.04-0.54) K/mm3 Baso # (Auto) 0.01 (0.01-0.08) K/mm3 Neutrophils % (Manual) (40-60) % Band Neutrophils % (0-10) % Lymphocytes % (Manual) (20-40) % Atypical Lymphs % % Monocytes % (Manual) (2-10) % Eosinophils % (Manual) (0.8-7.0) % Basophils % (Manual) (0.2-1.2) Manual Slide Review Abnormal smear Platelet Estimate RBC Morph Comment PT (9.7-12.0) SECONDS INR Sodium (136-145) mEq/L Potassium (3.5-5.1) mEq/L Chloride (98-107) mEq/L Carbon Dioxide (21-32) mEq/L Anion Gap (5-15) BUN (7-18) mg/dL Creatinine (0.7-1.3) mg/dL Est Cr Clr Drug Dosing mL/min Estimated GFR (MDRD) (>60) mL/min BUN/Creatinine Ratio (14-18) Glucose (70-99) mg/dL Hemoglobin A1c ( - 5.6) % Lactic Acid (0.4-2.0) mmol/L Calcium (8.5-10.1) mg/dL Magnesium (1.8-2.4) mg/dL Total Bilirubin (0.2-1.0) mg/dL AST (15-37) U/L ALT (16-63) U/L Alkaline Phosphatase (46-116) U/L Troponin I (0.00-0.056) ng/mL C-Reactive Protein (<1.0) mg/dL Total Protein (6.4-8.2) g/dl Albumin (3.4-5.0) g/dl Globulin gm/dL Albumin/Globulin Ratio (1-2) Urine Color (Yellow) Urine Appearance (Clear) Urine pH (5.0-8.0) Ur Specific [place] (1.005-1.030) Urine Protein (Negative) Urine Glucose (UA) (Negative) Urine Ketones (Negative) Urine Occult Blood (Negative) Urine Nitrite (Negative) Urine Bilirubin (Negative) Urine Urobilinogen (0.2-1.0) Ur Leukocyte Esterase (Negative) Urine RBC (0-5) /hpf Urine WBC (0-5) /hpf Ur Squamous Epith Cells (0-5) /hpf Urine Bacteria (FEW) /hpf Urine Mucus (FEW) /hpf SARS-CoV-2 RNA ([facility]) Negative (NEGATIVE) MRSA (PCR) Negative 08/05/20 08/05/20 08/05/20 Range/Units 05:07 05:07 05:07 WBC (4.23-9.07) K/mm3 RBC (4.63-6.08) M/mm3 Hgb (13.7-17.5) gm/dl Hct (40.1-51.0) % MCV (79.0-92.2) fl MCH (25.7-32.2) pg MCHC (32.2-35.5) g/dl RDW Std Deviation (35.1-43.9) fL Plt Count (163-337) K/mm3 MPV (9.4-12.3) fl Neut % (Auto) (34.0-67.9) % Lymph % (Auto) (21.8-53.1) % George % (Auto) (5.3-12.2) % Eos % (Auto) (0.8-7.0) Baso % (Auto) (0.1-1.2) % Neut # (Auto) (1.78-5.38) K/mm3 Lymph # (Auto) (1.32-3.57) K/mm3 George # (Auto) (0.30-0.82) K/mm3 Eos # (Auto) (0.04-0.54) K/mm3 Baso # (Auto) (0.01-0.08) K/mm3 Neutrophils % (Manual) (40-60) % Band Neutrophils % (0-10) % Lymphocytes % (Manual) (20-40) % Atypical Lymphs % % Monocytes % (Manual) (2-10) % Eosinophils % (Manual) (0.8-7.0) % Basophils % (Manual) (0.2-1.2) Manual Slide Review Platelet Estimate RBC Morph Comment PT 18.2 H (9.7-12.0) SECONDS INR 1.72 Sodium 136 (136-145) mEq/L Potassium 3.3 L (3.5-5.1) mEq/L Chloride 102 (98-107) mEq/L Carbon Dioxide 23 (21-32) mEq/L Anion Gap 14.3 (5-15) BUN 27 H (7-18) mg/dL Creatinine 1.5 H (0.7-1.3) mg/dL Est Cr Clr Drug Dosing 48.14 mL/min Estimated GFR (MDRD) 46 (>60) mL/min BUN/Creatinine Ratio 18.0 (14-18) Glucose 103 H (70-99) mg/dL Hemoglobin A1c 5.4 ( - 5.6) % Lactic Acid (0.4-2.0) mmol/L Calcium 8.0 L (8.5-10.1) mg/dL Magnesium 2.2 (1.8-2.4) mg/dL Total Bilirubin 0.6 (0.2-1.0) mg/dL AST 61 H (15-37) U/L ALT 45 (16-63) U/L Alkaline Phosphatase 116 (46-116) U/L Troponin I (0.00-0.056) ng/mL C-Reactive Protein (<1.0) mg/dL Total Protein 6.5 (6.4-8.2) g/dl Albumin 2.8 L (3.4-5.0) g/dl Globulin 3.7 gm/dL Albumin/Globulin Ratio 0.8 L (1-2) Urine Color (Yellow) Urine Appearance (Clear) Urine pH (5.0-8.0) Ur Specific [place] (1.005-1.030) Urine Protein (Negative) Urine Glucose (UA) (Negative) Urine Ketones (Negative) Urine Occult Blood (Negative) Urine Nitrite (Negative) Urine Bilirubin (Negative) Urine Urobilinogen (0.2-1.0) Ur Leukocyte Esterase (Negative) Urine RBC (0-5) /hpf Urine WBC (0-5) /hpf Ur Squamous Epith Cells (0-5) /hpf Urine Bacteria (FEW) /hpf Urine Mucus (FEW) /hpf SARS-CoV-2 RNA (MERLE) (NEGATIVE) MRSA (PCR) Result Diagrams: 08/05/20 05:07 08/05/20 05:07 Anton Results Last 24 hrs: Microbiology 08/04/20 17:30 Aerobic Blood Culture - Preliminary Blood - Venous Gram [facility] Ana[facility] Blood Culture - Preliminary Gram Positive [facility] 08/04/20 17:40 Aerobic Blood Culture - Preliminary Blood - Venous - Lab Draw Gram Positive [facility] Anaerobic Blood Culture - Preliminary Gram Positive [facility] Sepsis Event Note - Evaluation Sepsis Screening Result: No Definite Risk - Focused Exam Vital Signs: Vital Signs Temp Temp Temp Pulse Pulse Resp BP 08/05/20 09:07 118/57 L 08/05/20 09:06 80 118/57 L 08/05/20 07:21 38.9 C H 80 16 118/57 L 08/05/20 06:52 38.6 C H 08/05/20 05:00 38.8 C H 08/05/20 03:23 38.1 C 71 20 130/83 08/05/20 02:00 37.4 C 08/05/20 01:12 39.9 C H 08/05/20 01:01 39.8 C H 08/05/20 00:32 40.2 C H 78 20 08/05/20 00:31 40.2 C H BP Pulse Ox 08/05/20 09:07 08/05/20 09:06 08/05/20 07:21 91 L 08/05/20 06:52 08/05/20 05:00 08/05/20 03:23 92 L 08/05/20 02:00 08/05/20 01:12 08/05/20 01:01 08/05/20 00:32 99/64 95 08/05/20 00:31 - Problem List Review Problem List Initiated/Reviewed/Updated: Yes - My Orders Last 24 Hours: My Active Orders 08/04/20 20:39 Sodium Chloride 0.9% [Normal Saline] 1,000 ml IV NOW 08/04/20 20:41 Bedrest Bedside Commode [RC] BID Oxygen Therapy [RC] PRN VTE/DVT Education [RC] DAILY Vital Signs [RC] Q4HR OT Evaluation and Treatment [CONS] Routine PT Evaluation and Treatment [CONS] Routine BOOK AGENT Evaluation and Treatment [CONS] Routine CULTURE SPUTUM + SMEAR [RM] Stat Albuterol/Ipratropium [DuoNeb 3.0-0.5 MG/3 ML] 3 ml NEB Q4H PRN Docusate Sodium [Colace] 100 mg PO BID PRN Morphine 2 mg IVPUSH Q4H PRN Promethazine [Phenergan] 12.5 mg Sodium Chloride 0.9% [Normal Saline] 50 ml IV Q6H 08/04/20 20:42 Cardiac Monitoring [RC] CONTINUOUS Intake and Output [RC] 04,16 Pulse Oximetry [RC] CONTINUOUS 08/04/20 20:45 RT Aerosol Therapy [RC] ASDIRECTED Heparin Sodium 5,000 units SUBCUT Q12H Lactated Ringers [Ringers, Lactated] 1,000 ml IV ASDIRECTED 08/04/20 21:00 Amantadine [Symmetrel] 100 mg PO TID Metoprolol Tartrate [Lopressor] 50 mg PO BID 08/04/20 22:15 Code Status [Resuscitation Status] Routine 08/05/20 00:42 Acetaminophen [TylenoL] 650 mg PO Q6H PRN 08/05/20 09:00 Rosuvastatin [Crestor] 5 mg PO DAILY Trihexyphenidyl 0 mg PO TIDMEALS amLODIPine [Norvasc] 10 mg PO DAILY 08/05/20 09:25 Echo Comp wo Cont [US] Urgent Blood Culture x2 Reflex Set [OM.PC] Stat 08/05/20 09:37 Pharmacy to Dose - Vancomycin 1 dose .XX DAILY PRN 08/05/20 09:51 CULTURE BLOOD [BC] Stat 08/05/20 10:00 CULTURE BLOOD [BC] Stat Vancomycin 1 gm Vancomycin 750 mg Sodium Chloride 0.9% [Normal Saline] 500 ml IV ONETIME 08/05/20 11:00 Potassium Chloride [Klor-Con M20] 20 meq PO TIDMEALS 08/05/20 11:03 Warfarin Pharmacy to Dose [Pharmacy to Dose - Warfarin] 1 dose PO ASDIRECTED PRN 08/05/20 18:00 Warfarin [Coumadin] 10 mg PO QPM cefTRIAXone [Rocephin] 2 gm Sodium Chloride 0.9% [Normal Saline] 100 ml IV Q24H 08/05/20 21:00 Tamsulosin [Flomax] 0.4 mg PO BEDTIME 08/06/20 05:00 CBC WITH AUTO DIFF [HEME] DAILY COMPREHENSIVE METABOLIC PN,CMP [CHEM] DAILY INR,PT,PROTHROMBIN TIME [COAG] DAILY INR,PT,PROTHROMBIN TIME [COAG] DAILY Vancomycin 1 gm Vancomycin 500 mg Sodium Chloride 0.9% [Normal Saline] 500 ml IV Q18H 08/06/20 22:00 VANCOMYCIN TROUGH [CHEM] Timed 08/07/20 05:00 CBC WITH AUTO DIFF [HEME] DAILY COMPREHENSIVE METABOLIC PN,CMP [CHEM] DAILY INR,PT,PROTHROMBIN TIME [COAG] DAILY INR,PT,PROTHROMBIN TIME [COAG] DAILY 08/08/20 05:00 CBC WITH AUTO DIFF [HEME] DAILY COMPREHENSIVE METABOLIC PN,CMP [CHEM] DAILY INR,PT,PROTHROMBIN TIME [COAG] DAILY INR,PT,PROTHROMBIN TIME [COAG] DAILY 08/09/20 05:00 CBC WITH AUTO DIFF [HEME] DAILY COMPREHENSIVE METABOLIC PN,CMP [CHEM] DAILY INR,PT,PROTHROMBIN TIME [COAG] DAILY INR,PT,PROTHROMBIN TIME [COAG] DAILY 08/10/20 05:00 INR,PT,PROTHROMBIN TIME [COAG] DAILY - Plan Plan:: Pt is a 75 year old male with a history of Parkinson's disease and HTN who was brought to the ER due to fever and confusion last night associated with mild SOB. Bacteremia -Blood culture positive for GPC from all 4 bottles -Repeat blood culture -continue ceftriaxone and added vanco. discontinue azithromycin -echo Acute hypoxic respiratory failure -Not on home oxygen -could be due to pnenumonia -pulse ox. oxygen therapy to keep SpO2 >92% Sepsis 2nd to pneumonia -Tachypnea, confusion -NS bolus 1L in the ER. NS 1L was ordered -Continue LR 100mg/hr -blood culture positive (mentioned above) -Ceftriaxone and vanco AMS -Could be due to sepsis -CT of head - no acute change -monitor Pnuemonia, CAP? -CXR - RLL pneumonia (formal report pending) -CT chest -consolidation within both posterior lung bases either due to atelectasis or minimal areas of pneumonia -sputum culture -MRSA screen negative -Ceftriaxone 2g iv daily and vancomycin Parkinson's disease -amantadine -PT/OT -Speech pathology to r/o dysphagia Chronic use of anticoagulation, warfarin -Reasons unknown -INR 1.72 today -continue home warfarin -PT/INR daily, pharmacy to dose Anemia -MCV 89.6, MCHC 33.8 -repeat CBC daily in am Hyponatremia -repeat CMP in am JOCELYNE or JOCELYNE on CKD -creatinine 1.1 on 01/04/2019 -avoid nephrotoxic meds and contrast -repeat renal function in am -Creatinine went down to 1.5 from 1.7 yesterday Elevation of liver enzymes -AST 44, ALT 34, TBil 1.1, Alk phos 121 -could be due to sepsis or other -repeat liver function in am HTN -continue amlodipine 5mg daily and metoprolol 50mg bid -HCTZ 25mg daily and losartan 100mg daily are on hold -Hydralazine prn Maxillary sinus retention cyst -CT head - retention cyst within the right maxillary sinus -f/w pcp DVT prophylaxis: warfarin and heparin (will stop heparin once IRN reaches t hereapeutic level) Deposition: 2 to 3 more days
[2020-08-05] MEDS ORDERED: Sodium Chloride 0.9% 500 ML ONE (16:37)
[2020-08-05] MEDS: Sodium Chloride 0.9% 250 ML IV ONE ×2 (16:40→17:26)
[2020-08-05] MEDS: cefTRIAXone 2 GM in Sodium Chloride 0.9% 100 ML IV SCH (17:27)
[2020-08-05] MEDS ORDERED: Warfarin 5 MG Tab PO SCH ×2 (18:00→20:53)
[2020-08-05] MEDS: Tamsulosin 0.4 MG Cap.ER PO SCH (20:18)
[2020-08-06] MEDS: Lactated Ringers 1,000 ML IV SCH (01:28)
[2020-08-06] MEDS: Vancomycin 1 GM, Vancomycin 500 MG in Sodium Chloride 0.9% 500 ML IV SCH ×2 (05:07→23:09)
[2020-08-06] MEDS: Potassium Chloride 20 MEQ Tab.ER PO SCH (06:50)
[2020-08-06] MEDS: Acetaminophen 325 MG Tab PO PRN ×2 (06:50→21:21)
[2020-08-06] MEDS: TRIHEXYPHENIDYL 2 MG PO SCH ×3 (06:52→17:20)
[2020-08-06] MEDS: Amantadine 100 MG Cap PO SCH ×3 (08:27→21:22)
[2020-08-06] MEDS: Rosuvastatin 10 MG Tab PO SCH (08:27)
[2020-08-06] MEDS: amLODIPine 10 MG Tab PO SCH (08:28)
[2020-08-06] MEDS: Metoprolol Tartrate 25 MG Tab PO SCH ×2 (08:28→21:22)
[2020-08-06] MEDS: Heparin Sodium 5,000 Units/ML Vial SUBCUT SCH (08:30)
[2020-08-06] MEDS ORDERED: Losartan 100 MG Tab PO SCH (10:00)
[2020-08-06] MEDS ORDERED: Aspirin 81 MG Tab.Chew PO SCH (10:00)
[2020-08-06] MEDS ORDERED: Levothyroxine 100 MCG Tab PO SCH (10:00)
[2020-08-06] MEDS: Aspirin 81 MG Tab.Chew PO SCH (11:37)
[2020-08-06] MEDS: Levothyroxine 100 MCG Tab PO SCH (11:37)
[2020-08-06] MEDS: Losartan 100 MG Tab PO SCH (11:38)
--- NOTE | 2020-08-06 13:09 | PCM.PN ---
- General Info Date of Service: 08/06/20 Admission Dx/Problem (Free Text): Admission Diagnosis/Problem Admission Diagnosis/Problem Pneumonia Subjective Update: Pt is a 75 year old male with a history of Parkinson's disease and HTN who was brought to the ER due to fever and confusion last night associated with mild SOB. Pt does not have any new complaints. He is feeling better. He is afebrile today WBC 4.07, hemoglobin 9.5, platelets 121 INR 2.011 Potassium 3.5, creatinine 1.2 BNP 5888 Repeat blood culture positive again, sensitivity pending - Review of Systems Systems Review Comment:: General: Reports: Fever HEENT: Reports: No Symptoms Pulmonary: Reports: Shortness of Breath Cardiovascular: Reports: No Symptoms Gastrointestinal: Reports: No Symptoms Genitourinary: Reports: No Symptoms Musculoskeletal: Reports: No Symptoms Skin: Reports: No Symptoms Neurological: Reports: No Symptoms Psychiatric: Reports: No Symptoms - Patient Data Vitals - Most Recent: Last Vital Signs Temp 37.6 C 08/06/20 11:27 Pulse 52 L 08/06/20 11:27 Resp 16 08/06/20 11:27 BP 114/63 08/06/20 11:38 Pulse Ox 98 08/06/20 11:27 Weight - Most Recent: 88.496 kg I&O - Last 24 Hours: Intake & Output 08/05/20 08/06/20 08/06/20 22:59 06:59 14:59 Intake Total 1690 2875 360 Output Total 200 700 Balance 1490 2175 360 Lab Results Last 24 Hours: Laboratory Results - last 24 hr 08/05/20 08/05/20 08/05/20 Range/Units 15:40 15:40 15:40 WBC (4.23-9.07) K/mm3 RBC (4.63-6.08) M/mm3 Hgb (13.7-17.5) gm/dl Hct (40.1-51.0) % MCV (79.0-92.2) fl MCH (25.7-32.2) pg MCHC (32.2-35.5) g/dl RDW Std Deviation (35.1-43.9) fL Plt Count (163-337) K/mm3 MPV (9.4-12.3) fl Neut % (Auto) (34.0-67.9) % Lymph % (Auto) (21.8-53.1) % [place] % (Auto) (5.3-12.2) % Eos % (Auto) (0.8-7.0) Baso % (Auto) (0.1-1.2) % Neut # (Auto) (1.78-5.38) K/mm3 Lymph # (Auto) (1.32-3.57) K/mm3 [place] # (Auto) (0.30-0.82) K/mm3 Eos # (Auto) (0.04-0.54) K/mm3 Baso # (Auto) (0.01-0.08) K/mm3 Manual Slide Review PT (9.7-12.0) SECONDS INR Sodium (136-145) mEq/L Potassium (3.5-5.1) mEq/L Chloride (98-107) mEq/L Carbon Dioxide (21-32) mEq/L Anion Gap (5-15) BUN (7-18) mg/dL Creatinine (0.7-1.3) mg/dL Est Cr Clr Drug Dosing mL/min Estimated GFR (MDRD) (>60) mL/min BUN/Creatinine Ratio (14-18) Glucose (70-99) mg/dL Lactic Acid 0.8 (0.4-2.0) mmol/L Calcium (8.5-10.1) mg/dL Total Bilirubin (0.2-1.0) mg/dL AST (15-37) U/L ALT (16-63) U/L Alkaline Phosphatase (46-116) U/L Troponin I 0.042 (0.00-0.056) ng/mL NT-Pro-B Natriuret Pep 5888 H (0-125) pg/mL Total Protein (6.4-8.2) g/dl Albumin (3.4-5.0) g/dl Globulin gm/dL Albumin/Globulin Ratio (1-2) 08/06/20 08/06/20 08/06/20 Range/Units 05:55 05:55 05:55 WBC 4.07 L (4.23-9.07) K/mm3 RBC 3.24 L (4.63-6.08) M/mm3 Hgb 9.5 L (13.7-17.5) gm/dl Hct 29.2 L (40.1-51.0) % MCV 90.1 (79.0-92.2) fl MCH 29.3 (25.7-32.2) pg MCHC 32.5 (32.2-35.5) g/dl RDW Std Deviation 46.9 H (35.1-43.9) fL Plt Count 121 L (163-337) K/mm3 MPV 8.8 L (9.4-12.3) fl Neut % (Auto) 81.5 H (34.0-67.9) % Lymph % (Auto) 8.6 L (21.8-53.1) % [place] % (Auto) 8.8 (5.3-12.2) % Eos % (Auto) 0.7 L (0.8-7.0) Baso % (Auto) 0.2 (0.1-1.2) % Neut # (Auto) 3.31 (1.78-5.38) K/mm3 Lymph # (Auto) 0.35 L (1.32-3.57) K/mm3 [place] # (Auto) 0.36 (0.30-0.82) K/mm3 Eos # (Auto) 0.03 L (0.04-0.54) K/mm3 Baso # (Auto) 0.01 (0.01-0.08) K/mm3 Manual Slide Review Abnormal smear PT 22.2 H (9.7-12.0) SECONDS INR 2.11 Sodium 139 (136-145) mEq/L Potassium 3.5 (3.5-5.1) mEq/L Chloride 105 (98-107) mEq/L Carbon Dioxide 23 (21-32) mEq/L Anion Gap 14.5 (5-15) BUN 25 H (7-18) mg/dL Creatinine 1.2 (0.7-1.3) mg/dL Est Cr Clr Drug Dosing 60.18 mL/min Estimated GFR (MDRD) 59 (>60) mL/min BUN/Creatinine Ratio 20.8 H (14-18) Glucose 105 H (70-99) mg/dL Lactic Acid (0.4-2.0) mmol/L Calcium 7.9 L (8.5-10.1) mg/dL Total Bilirubin 0.5 (0.2-1.0) mg/dL AST 63 H (15-37) U/L ALT 47 (16-63) U/L Alkaline Phosphatase 117 H (46-116) U/L Troponin I (0.00-0.056) ng/mL NT-Pro-B Natriuret Pep (0-125) pg/mL Total Protein 5.8 L (6.4-8.2) g/dl Albumin 2.4 L (3.4-5.0) g/dl Globulin 3.4 gm/dL Albumin/Globulin Ratio 0.7 L (1-2) Anton Results Last 24 Hours: Microbiology 08/05/20 10:00 Aerobic Blood Culture - Preliminary Blood - Venous - Lab Draw Gram Positive Cocci In [facility] Anaerobic Blood Culture - Preliminary NO GROWTH AFTER 1 DAY 08/05/20 09:51 Aerobic Blood Culture - Preliminary Blood - Venous Gram Positive Cocci In [facility] Anaerobic Blood Culture - Preliminary NO GROWTH AFTER 1 DAY 08/04/20 17:30 Aerobic Blood Culture - Preliminary Blood - Venous Staphylococcus Aureus Anaerobic Blood Culture - Preliminary Staphylococcus Aureus 08/04/20 17:40 Aerobic Blood Culture - Preliminary Blood - Venous - Lab Draw Staphylococcus Aureus Anaerobic Blood Culture - Preliminary Gram Positive Cocci In [facility] Med Orders - Current: Current Medications Acetaminophen (Acetaminophen 325 Mg Tab) 650 mg PO Q6H PRN PRN Reason: Pain/Fever Last Admin: 08/06/20 06:50 Dose: 650 mg Documented by: Albuterol/Ipratropium (Albuterol/Ipratropium 3.0-0.5 Mg/3 Ml Neb Soln) 3 ml NEB Q4H PRN PRN Reason: Shortness Of Breath/wheezing Amantadine HCl (Amantadine 100 Mg Cap) 100 mg PO TID [facility] Last Admin: 08/06/20 08:27 Dose: 100 mg Documented by: Amlodipine Besylate (Amlodipine 10 Mg Tab) 10 mg PO DAILY [facility] Last Admin: 08/06/20 08:28 Dose: 10 mg Documented by: Aspirin (Aspirin 81 Mg Tab.Chew) 81 mg PO DAILY [facility] Last Admin: 08/06/20 11:37 Dose: 81 mg Documented by: Docusate Sodium (Docusate Sodium 100 Mg Cap) 100 mg PO BID PRN PRN Reason: Constipation Hydrochlorothiazide (Hydrochlorothiazide 25 Mg Tab) 25 mg PO DAILY [facility] Sodium Chloride (Normal Saline) 1,000 mls @ 200 mls/hr IV NOW STA Stop: 08/05/20 01:38 Last Admin: 08/04/20 22:14 Dose: 200 mls/hr Documented by: Lactated Ringer's (Ringers, Lactated) 1,000 mls @ 85 mls/hr IV ASDIRECTED [facility] Last Admin: 08/06/20 01:28 Dose: 85 mls/hr Documented by: Promethazine HCl 12.5 mg/ (Sodium Chloride) 50.5 mls @ 100 mls/hr IV Q6H PRN PRN Reason: Nausea/Vomiting Ceftriaxone Sodium 2 gm/ (Sodium Chloride) 100 mls @ 200 mls/hr IV Q24H [facility] Last Admin: 08/05/20 17:27 Dose: 200 mls/hr Documented by: Vancomycin HCl 1 gm/Vancomycin HCl 500 mg/ Sodium Chloride 500 mls @ 250 mls/hr IV Q18H [facility] Last Admin: 08/06/20 05:07 Dose: 250 mls/hr Documented by: Levothyroxine Sodium (Levothyroxine 100 Mcg Tab) 100 mcg PO ACBREAKFAST [facility] Last Admin: 08/06/20 11:37 Dose: 100 mcg Documented by: Losartan Potassium (Losartan 100 Mg Tab) 100 mg PO DAILY [facility] Last Admin: 08/06/20 11:38 Dose: 100 mg Documented by: Metoprolol Tartrate (Metoprolol Tartrate 25 Mg Tab) 25 mg PO BID [facility] Last Admin: 08/06/20 08:28 Dose: 25 mg Documented by: Trihexyphenidyl 2 Mg (Tablet Ptom) 0 mg PO TIDMEALS [facility] Last Admin: 08/06/20 11:37 Dose: 2 mg Documented by: Rosuvastatin Calcium (Rosuvastatin 10 Mg Tab) 5 mg PO DAILY [facility] Last Admin: 08/06/20 08:27 Dose: 5 mg Documented by: Sodium Chloride (Sodium Chloride 0.9% 10 Ml Syringe) 10 ml FLUSH ASDIRECTED PRN PRN Reason: Keep Vein Open Last Admin: 08/04/20 17:35 Dose: 10 ml Documented by: Tamsulosin HCl (Tamsulosin 0.4 Mg Cap.Er) 0.4 mg PO BEDTIME [facility] Last Admin: 06/16/21 20:18 Dose: 0.4 mg Documented by: Vancomycin HCl (Pharmacy To Dose - Vancomycin) 1 dose .XX DAILY PRN PRN Reason: RX TO DOSE VANCO Warfarin Sodium (Pharmacy To Dose - Warfarin) 1 dose PO ASDIRECTED PRN PRN Reason: RX TO DOSE WARFARIN Discontinued Medications Acetaminophen (Acetaminophen 325 Mg Tab) 975 mg PO NOW ONE Stop: 08/04/20 17:21 Last Admin: 08/04/20 17:42 Dose: 975 mg Documented by: Acetaminophen (Acetaminophen 325 Mg Tab) Confirm Administered Dose 975 mg .ROUTE .STK-MED ONE Stop: 08/04/20 17:39 Last Admin: 08/04/20 17:45 Dose: Not Given Documented by: Acetaminophen (Acetaminophen 325 Mg Tab) Confirm Administered Dose 975 mg .ROUTE .STK-MED ONE Stop: 08/04/20 17:40 Last Admin: 08/04/20 17:45 Dose: Not Given Documented by: Acetaminophen (Acetaminophen 650 Mg Supp) 650 mg RECTAL Q6H PRN PRN Reason: Pain (mild 1-3) Last Admin: 08/05/20 00:31 Dose: 650 mg Documented by: Aspirin (Aspirin 81 Mg Tab.Chew) 81 mg PO DAILY [facility] Last Admin: 08/06/20 11:32 Dose: Not Given Documented by: Heparin Sodium (Porcine) (Heparin Sodium 5,000 Units/Ml Vial) 5,000 units SUBCUT Q12H [facility] Last Admin: 08/06/20 08:30 Dose: 5,000 units Documented by: Sodium Chloride (Normal Saline) 1,000 mls @ 126 mls/hr IV NOW STA Stop: 08/05/20 01:11 Last Admin: 08/04/20 17:45 Dose: 126 mls/hr Documented by: Ceftriaxone Sodium 1 gm/ (Sodium Chloride) 100 mls @ 200 mls/hr IV ONETIME ONE Stop: 08/04/20 18:40 Last Admin: 08/04/20 18:22 Dose: 200 mls/hr Documented by: Ceftriaxone Sodium 1 gm/ (Sodium Chloride) 100 mls @ 200 mls/hr IV ONETIME ONE Stop: 08/04/20 21:19 Last Admin: 08/04/20 21:50 Dose: 200 mls/hr Documented by: Azithromycin 500 mg/ Sodium (Chloride) 250 mls @ 250 mls/hr IV Q24H [facility] Last Admin: 08/04/20 21:30 Dose: 250 mls/hr Documented by: Magnesium Sulfate/Dextrose 1 (gm/ Premix) 100 mls @ 100 mls/hr IV ONETIME ONE Stop: 08/05/20 00:20 Last Admin: 08/04/20 23:33 Dose: 100 mls/hr Documented by: Vancomycin HCl 1 gm/Vancomycin HCl 750 mg/ Sodium Chloride 500 mls @ 250 mls/hr IV ONETIME ONE Stop: 08/05/20 11:59 Last Admin: 08/05/20 11:05 Dose: 250 mls/hr Documented by: Sodium Chloride (Normal Saline) 250 mls @ 999 mls/hr IV .BOLUS ONE Stop: 08/05/20 17:00 Last Admin: 08/05/20 17:26 Dose: Not Given Documented by: Sodium Chloride (Normal Saline) Confirm Administered Dose 500 mls @ as directed .ROUTE .STK-MED ONE Stop: 08/05/20 16:38 Last Admin: 08/05/20 17:26 Dose: Not Given Documented by: Levothyroxine Sodium (Levothyroxine 100 Mcg Tab) 100 mcg PO DAILY [facility] Last Admin: 08/06/20 11:32 Dose: Not Given Documented by: Losartan Potassium (Losartan 100 Mg Tab) 100 mg PO DAILY [facility] Last Admin: 08/06/20 11:32 Dose: Not Given Documented by: Metoprolol Tartrate (Metoprolol Tartrate 50 Mg Tab) 50 mg PO BID [facility] Last Admin: 08/05/20 09:06 Dose: 50 mg Documented by: Morphine Sulfate (Morphine 2 Mg/Ml Syringe) 2 mg IVPUSH Q4H PRN PRN Reason: Pain (severe 7-10) Stop: 08/05/20 20:44 Non-Formulary Medication (Pilocarpine) 5 mg PO DAILY [facility] Last Admin: 08/05/20 08:51 Dose: Not Given Documented by: Potassium Chloride (Potassium Chloride 20 Meq Tab.Er) 20 meq PO TIDMEALS [facility] Stop: 08/06/20 07:01 Last Admin: 08/06/20 06:50 Dose: 20 meq Documented by: Warfarin Sodium (Warfarin 5 Mg Tab) 10 mg PO QPM [facility] Stop: 08/05/20 18:01 Last Admin: 08/05/20 17:27 Dose: 10 mg Documented by: - Exam Urinary Catheter Total Time: 0Days 0Hours Physical Findings Comments:: General: Alert, Cooperative HEENT: Conjunctiva Clear, EOMI, Pupils Equal, Pupils Reactive, PERRLA. head and chin shaking. Neck: Supple, Trachea Midline, Full Range of Motion Lungs: Normal Respiratory Effort, Crackles (RLL) Cardiovascular: Regular Rate, Regular Rhythm GI/Abdominal Exam: Normal Bowel Sounds, Soft, Non-Tender, No Organomegaly, No Distention Extremities: Normal Inspection, Normal Range of Motion, Non-Tender, No Pedal Edema Skin: Warm, Dry, Intact Neurological: Strength Equal Bilateral, Normal Speech, Normal Tone, Sensation Intact Neuro Extensive - Mental Status: Normal Mood/Affect Psychiatric: Normal Affect, Normal Mood - Patient Data Lab Results Last 24 hrs: Laboratory Results - last 24 hr 08/05/20 08/05/20 08/05/20 Range/Units 15:40 15:40 15:40 WBC (4.23-9.07) K/mm3 RBC (4.63-6.08) M/mm3 Hgb (13.7-17.5) gm/dl Hct (40.1-51.0) % MCV (79.0-92.2) fl MCH (25.7-32.2) pg MCHC (32.2-35.5) g/dl RDW Std Deviation (35.1-43.9) fL Plt Count (163-337) K/mm3 MPV (9.4-12.3) fl Neut % (Auto) (34.0-67.9) % Lymph % (Auto) (21.8-53.1) % [place] % (Auto) (5.3-12.2) % Eos % (Auto) (0.8-7.0) Baso % (Auto) (0.1-1.2) % Neut # (Auto) (1.78-5.38) K/mm3 Lymph # (Auto) (1.32-3.57) K/mm3 [place] # (Auto) (0.30-0.82) K/mm3 Eos # (Auto) (0.04-0.54) K/mm3 Baso # (Auto) (0.01-0.08) K/mm3 Manual Slide Review PT (9.7-12.0) SECONDS INR Sodium (136-145) mEq/L Potassium (3.5-5.1) mEq/L Chloride (98-107) mEq/L Carbon Dioxide (21-32) mEq/L Anion Gap (5-15) BUN (7-18) mg/dL Creatinine (0.7-1.3) mg/dL Est Cr Clr Drug Dosing mL/min Estimated GFR (MDRD) (>60) mL/min BUN/Creatinine Ratio (14-18) Glucose (70-99) mg/dL Lactic Acid 0.8 (0.4-2.0) mmol/L Calcium (8.5-10.1) mg/dL Total Bilirubin (0.2-1.0) mg/dL AST (15-37) U/L ALT (16-63) U/L Alkaline Phosphatase (46-116) U/L Troponin I 0.042 (0.00-0.056) ng/mL NT-Pro-B Natriuret Pep 5888 H (0-125) pg/mL Total Protein (6.4-8.2) g/dl Albumin (3.4-5.0) g/dl Globulin gm/dL Albumin/Globulin Ratio (1-2) 08/06/20 08/06/20 08/06/20 Range/Units 05:55 05:55 05:55 WBC 4.07 L (4.23-9.07) K/mm3 RBC 3.24 L (4.63-6.08) M/mm3 Hgb 9.5 L (13.7-17.5) gm/dl Hct 29.2 L (40.1-51.0) % MCV 90.1 (79.0-92.2) fl MCH 29.3 (25.7-32.2) pg MCHC 32.5 (32.2-35.5) g/dl RDW Std Deviation 46.9 H (35.1-43.9) fL Plt Count 121 L (163-337) K/mm3 MPV 8.8 L (9.4-12.3) fl Neut % (Auto) 81.5 H (34.0-67.9) % Lymph % (Auto) 8.6 L (21.8-53.1) % [place] % (Auto) 8.8 (5.3-12.2) % Eos % (Auto) 0.7 L (0.8-7.0) Baso % (Auto) 0.2 (0.1-1.2) % Neut # (Auto) 3.31 (1.78-5.38) K/mm3 Lymph # (Auto) 0.35 L (1.32-3.57) K/mm3 [place] # (Auto) 0.36 (0.30-0.82) K/mm3 Eos # (Auto) 0.03 L (0.04-0.54) K/mm3 Baso # (Auto) 0.01 (0.01-0.08) K/mm3 Manual Slide Review Abnormal smear PT 22.2 H (9.7-12.0) SECONDS INR 2.11 Sodium 139 (136-145) mEq/L Potassium 3.5 (3.5-5.1) mEq/L Chloride 105 (98-107) mEq/L Carbon Dioxide 23 (21-32) mEq/L Anion Gap 14.5 (5-15) BUN 25 H (7-18) mg/dL Creatinine 1.2 (0.7-1.3) mg/dL Est Cr Clr Drug Dosing 60.18 mL/min Estimated GFR (MDRD) 59 (>60) mL/min BUN/Creatinine Ratio 20.8 H (14-18) Glucose 105 H (70-99) mg/dL Lactic Acid (0.4-2.0) mmol/L Calcium 7.9 L (8.5-10.1) mg/dL Total Bilirubin 0.5 (0.2-1.0) mg/dL AST 63 H (15-37) U/L ALT 47 (16-63) U/L Alkaline Phosphatase 117 H (46-116) U/L Troponin I (0.00-0.056) ng/mL NT-Pro-B Natriuret Pep (0-125) pg/mL Total Protein 5.8 L (6.4-8.2) g/dl Albumin 2.4 L (3.4-5.0) g/dl Globulin 3.4 gm/dL Albumin/Globulin Ratio 0.7 L (1-2) Result Diagrams: 08/06/20 05:55 08/06/20 05:55 Anton Results Last 24 hrs: Microbiology 08/05/20 10:00 Aerobic Blood Culture - Preliminary Blood - Venous - Lab Draw Gram Positive Cocci In [facility] Anaerobic Blood Culture - Preliminary NO GROWTH AFTER 1 DAY 08/05/20 09:51 Aerobic Blood Culture - Preliminary Blood - Venous Gram Positive Cocci In [facility] Anaerobic Blood Culture - Preliminary NO GROWTH AFTER 1 DAY 08/04/20 17:30 Aerobic Blood Culture - Preliminary Blood - Venous Staphylococcus Aureus Anaerobic Blood Culture - Preliminary Staphylococcus Aureus 08/04/20 17:40 Aerobic Blood Culture - Preliminary Blood - Venous - Lab Draw Staphylococcus Aureus Anaerobic Blood Culture - Preliminary Gram Positive Cocci In [facility] Sepsis Event Note - Evaluation Sepsis Screening Result: No Definite Risk - Focused Exam Vital Signs: Vital Signs Temp Temp Pulse Resp BP Pulse Ox Pulse Ox 08/06/20 11:38 114/63 08/06/20 11:27 37.6 C 52 L 16 107/54 L 98 08/06/20 08:28 81 124/68 08/06/20 07:44 93 L 08/06/20 07:20 37.6 C 81 16 120/58 L 95 08/06/20 06:50 37.9 C 08/06/20 06:48 37.9 C 08/06/20 06:13 96 08/06/20 02:49 38.1 C 70 20 106/63 92 L 08/06/20 01:00 38.6 C H - Problem List Review Problem List Initiated/Reviewed/Updated: Yes - My Orders Last 24 Hours: My Active Orders 08/05/20 18:00 cefTRIAXone [Rocephin] 2 gm Sodium Chloride 0.9% [Normal Saline] 100 ml IV Q24H 08/05/20 21:00 Tamsulosin [Flomax] 0.4 mg PO BEDTIME 08/06/20 05:00 Vancomycin 1 gm Vancomycin 500 mg Sodium Chloride 0.9% [Normal Saline] 500 ml IV Q18H 08/06/20 Breakfast Mechanical Soft Diet [DIET] 08/06/20 09:00 Metoprolol Tartrate [Lopressor] 25 mg PO BID 08/06/20 09:52 Blood Culture x2 Reflex Set [OM.PC] Stat 08/06/20 11:30 Aspirin 81 mg PO DAILY Levothyroxine [Synthroid] 100 mcg PO ACBREAKFAST Losartan [Cozaar] 100 mg PO DAILY 08/06/20 12:15 CULTURE BLOOD [BC] Stat CULTURE BLOOD [BC] Stat 08/06/20 22:00 VANCOMYCIN TROUGH [CHEM] Timed 08/07/20 05:00 CBC WITH AUTO DIFF [HEME] DAILY COMPREHENSIVE METABOLIC PN,CMP [CHEM] DAILY INR,PT,PROTHROMBIN TIME [COAG] DAILY INR,PT,PROTHROMBIN TIME [COAG] DAILY 08/07/20 09:00 hydroCHLOROthiazide 25 mg PO DAILY 08/08/20 05:00 CBC WITH AUTO DIFF [HEME] DAILY COMPREHENSIVE METABOLIC PN,CMP [CHEM] DAILY INR,PT,PROTHROMBIN TIME [COAG] DAILY INR,PT,PROTHROMBIN TIME [COAG] DAILY 08/09/20 05:00 CBC WITH AUTO DIFF [HEME] DAILY COMPREHENSIVE METABOLIC PN,CMP [CHEM] DAILY INR,PT,PROTHROMBIN TIME [COAG] DAILY INR,PT,PROTHROMBIN TIME [COAG] DAILY 08/10/20 05:00 INR,PT,PROTHROMBIN TIME [COAG] DAILY - Plan Plan:: Pt is a 75 year old male with a history of Parkinson's disease and HTN who was brought to the ER due to fever and confusion last night associated with mild SOB. Acute hypoxic respiratory failure -Could be due to PNA -He is now on 2L -pulse ox and oxygen therapy to maintain SpO2 > 92% Sepsis 2nd to pneumonia - improved/resolved -Tachypnea and confusion on admission -NS bolus 1L in the ER. NS 1L was ordered -Discontinued LR 100mg/hr -blood culture -Continue ceftriaxone and discontinued azithromycin. Vancomycin started Bacteremia -Blood culture showed gram-positive cocci from all 4 bottles -Repeat blood culture yesterday-positive again -Repeat blood culture -Vancomycin and ceftriaxone -Echocardiogram AMS -Could be due to sepsis -CT of head -no acute intracranial change -monitor Pnuemonia, CAP? -CXR - RLL pneumonia (formal report pending) -CT chest -consolidation within both posterior lung bases either due to atel ectasis or minimal areas of pneumonia. Prior sternotomy and a prosthetic mitral valve. -sputum culture -MRSA screen negative -Ceftriaxone 2g iv daily and vancomycin Parkinson's disease -amantadine -PT/OT -Speech pathology to r/o dysphagia Chronic use of anticoagulation, warfarin -Reasons unknown -INR 1.73 on admission. 2.1 today -continue home warfarin -PT/INR daily, pharmacy to dose Anemia -MCV 89.6, MCHC 33.8 -repeat CBC daily in am Hyponatremia -repeat CMP in am JOCELYNE or JOCELYNE on CKD -creatinine 1.1 on 01/04/2019 -avoid nephrotoxic meds and contrast -Creatinine 1.2 today -repeat renal function in am -will do more workup if not improved Elevation of liver enzymes -AST 44, ALT 34, TBil 1.1, Alk phos 121 -could be due to sepsis or other -repeat liver function in am HTN -continue amlodipine 5mg daily and metoprolol 50mg bid -HCTZ 25mg daily and losartan 100mg daily are on hold -Hydralazine prn DVT prophylaxis: warfarin
--- NOTE | 2020-08-06 14:34 | PCM.DCSUM1 ---
Discharge Summary - Hospital Course Free Text/Narrative:: Pt is a 75 year old male with a history of Parkinson's disease and HTN who was brought to the ER due to fever and confusion last night associated with mild SOB. Acute hypoxic respiratory failure -Could be due to PNA -He is now on 2L -pulse ox and oxygen therapy to maintain SpO2 > 92% Sepsis 2nd to pneumonia - improved/resolved -Tachypnea and confusion on admission -NS bolus 1L in the ER. NS 1L was ordered -Discontinued LR 100mg/hr -blood culture -Continue ceftriaxone and discontinued azithromycin. discontinued Vancomycin today Bacteremia -Blood culture showed gram-positive cocci from all 4 bottles. Sensitivity came back today, MSSA, sensitive to all antibiotics -Repeat blood culture yesterday-positive again -Repeat blood culture -Continue ceftriaxone and discontinued vancomycin -Echocardiogram pending AMS -Could be due to sepsis -CT of head -no acute intracranial change -monitor Pnuemonia, CAP? -CXR - RLL pneumonia (formal report pending) -CT chest -consolidation within both posterior lung bases either due to atelectasis or minimal areas of pneumonia. Prior sternotomy and a prosthetic mitral valve. -sputum culture -MRSA screen negative -Ceftriaxone 2g iv daily and discontinued vancomycin today Parkinson's disease -amantadine -PT/OT -Speech pathology to r/o dysphagia Chronic use of anticoagulation, warfarin -Reasons unknown -INR 1.73 on admission. 2.65 today -continue home warfarin -PT/INR daily, pharmacy to dose Anemia -MCV 89.6, MCHC 33.8 -repeat CBC daily in am Hyponatremia -repeat CMP in am JOCELYNE or JOCELYNE on CKD -creatinine 1.1 on 01/04/2019 -avoid nephrotoxic meds and contrast -Creatinine 1.2 today -repeat renal function in am -will do more workup if not improved Elevation of liver enzymes -AST 44, ALT 34, TBil 1.1, Alk phos 121 -could be due to sepsis or other -repeat liver function in am HTN -continue amlodipine 5mg daily and metoprolol 50mg bid -HCTZ 25mg daily and losartan 100mg daily are on hold -Hydralazine prn Bradycardia -Endocarditis? -Patient has a metallic valve -Heart rate 45 -Heart rate 70-80 yesterday -EKG -BP 20+/55 -Continue ceftriaxone -GIBSON -pt needs GIBSON and cardiology and ID. DVT prophylaxis: warfarin Considering his GPC (staphy aureus) bacteremia and metalic mitral valve, I feel pt may need GIBSON and specialist (ID and cardiology). So I would like to transfer the pt to higher level. Discussed with pt and who agreed with the plan. Spoke to [facility] in [place] yesterday. They did not have a bed available yesterday but would most likely have a bed available today. Spoke to them this morning, unfortunately there is no bed available. Discussed with mattress and foundation sewer Dr. Jensen and hospitalist Dr. Marquez at [facility] in [place] who accepted this patient. Discussed with patient and the who agreed to go to [facility] in [place]. Diagnosis: Stroke: No - Discharge Data Discharge Date: 08/07/20 Discharge Disposition: DC/Tfer to Acute Hospital 02 Condition: Serious - Referral to Home Health Primary Care Physician: Tera Crawford MD - Patient Summary/Data Consults: Consultations 08/04/20 20:41 OT Evaluation and Treatment [CONS] Routine PT Evaluation and Treatment [CONS] Routine MANAGER MONITORING Evaluation and Treatment [CONS] Routine - Patient Instructions Diet: Mechanical Soft Activity: As Tolerated Driving: Do Not Drive - Discharge Plan *PRESCRIPTION DRUG MONITORING PROGRAM REVIEWED*: Not Applicable *COPY OF PRESCRIPTION DRUG MONITORING REPORT IN PATIENT XIOMY: Not Applicable Home Medications: Home Meds Amantadine [Symmetrel] 100 mg PO TID 05/02/17 [History] Metoprolol Tartrate 25 mg PO BID 05/02/17 [History] Potassium Chloride 10 meq PO BID 05/02/17 [History] Rosuvastatin [Crestor] 5 mg PO DAILY 05/02/17 [History] Tamsulosin [Flomax] 0.4 mg PO DAILY 05/02/17 [History] amLODIPine Besylate [Amlodipine Besylate] 10 mg PO DAILY 05/02/17 [History] hydroCHLOROthiazide [Hydrochlorothiazide] 25 mg PO DAILY 05/02/17 [History] Acetaminophen/Codeine [Tylenol with Codeine No.3 300MG/30MG] 1 tab PO Q4H PRN #20 tab 01/04/19 [Rx] Losartan [Cozaar] 100 mg PO DAILY 01/04/19 [History] Trihexyphenidyl [Artane] 2 mg PO TIDMEALS 01/04/19 [History] Aspirin 81 mg PO DAILY 08/05/20 [History] Levothyroxine [Synthroid] 100 mcg PO DAILY 08/05/20 [History] Warfarin [Coumadin] 7.5 mg PO MOWEFR 08/05/20 [History] Warfarin [Coumadin] 10 mg PO SUTUTHSA 08/05/20 [History] Albuterol/Ipratropium [DuoNeb 3.0-0.5 MG/3 ML] 3 ml NEB Q4H PRN neb 08/06/20 [Rx] Metoprolol Tartrate [Lopressor] 25 mg PO BID tablet 08/06/20 [Rx] Pharmacy to Dose - Vancomycin 1 dose .XX DAILY PRN each 08/06/20 [Rx] Pharmacy to Dose - Warfarin 1 dose PO ASDIRECTED PRN each 08/06/20 [Rx] Promethazine [Phenergan] 12.5 mg IV Q6H PRN vial 08/06/20 [Rx] Sodium Chloride 0.9% [Saline Flush] 10 ml FLUSH ASDIRECTED PRN syringe 08/06/20 [Rx] Vancomycin 1 gm IV Q18H sdv 08/06/20 [Rx] Vancomycin 500 mg IV Q18H sdv 08/06/20 [Rx] cefTRIAXone [Rocephin] 2 gm IV Q24H adv 08/06/20 [Rx] Oxygen Therapy Mode: Nasal Cannula Oxygen Flow Rate (L/min): 2 Forms: ED Department Discharge Referrals: Tera Crawford MD [Primary Care Provider] - - Discharge Summary/Plan Comment DC Time >30 min.: Yes - General Info Date of Service: 08/07/20 Admission Dx/Problem (Free Text: Admission Diagnosis/Problem Admission Diagnosis/Problem Pneumonia Subjective Update: Pt is a 75 year old male with a history of Parkinson's disease and HTN who was brought to the ER due to fever and confusion last night associated with mild SOB. Pt does not have any new complaints. He is feeling better. He is afebrile today Pulse 45, afebrile Hemoglobin 9.6, platelets 147 INR 2.65 Creatinine 1.2 - Review of Systems Systems Review Comment: General: Reports: Fever HEENT: Reports: No Symptoms Pulmonary: Reports: Shortness of Breath Cardiovascular: Reports: No Symptoms Gastrointestinal: Reports: No Symptoms Genitourinary: Reports: No Symptoms Musculoskeletal: Reports: No Symptoms Skin: Reports: No Symptoms Neurological: Reports: No Symptoms Psychiatric: Reports: No Symptoms - Patient Data Vitals - Most Recent: Last Vital Signs Temp 37.6 C 08/06/20 11:27 Pulse 52 L 08/06/20 11:27 Resp 16 08/06/20 11:27 BP 114/63 08/06/20 11:38 Pulse Ox 98 08/06/20 11:27 Weight - Most Recent: 88.496 kg I&O - Last 24 hours: Intake & Output 08/05/20 08/06/20 08/06/20 22:59 06:59 14:59 Intake Total 1690 2875 360 Output Total 200 700 Balance 1490 2175 360 Lab Results - Last 24 hrs: Laboratory Results - last 24 hr 08/05/20 08/05/20 08/05/20 Range/Units 15:40 15:40 15:40 WBC (4.23-9.07) K/mm3 RBC (4.63-6.08) M/mm3 Hgb (13.7-17.5) gm/dl Hct (40.1-51.0) % MCV (79.0-92.2) fl MCH (25.7-32.2) pg MCHC (32.2-35.5) g/dl RDW Std Deviation (35.1-43.9) fL Plt Count (163-337) K/mm3 MPV (9.4-12.3) fl Neut % (Auto) (34.0-67.9) % Lymph % (Auto) (21.8-53.1) % [place] % (Auto) (5.3-12.2) % Eos % (Auto) (0.8-7.0) Baso % (Auto) (0.1-1.2) % Neut # (Auto) (1.78-5.38) K/mm3 Lymph # (Auto) (1.32-3.57) K/mm3 [place] # (Auto) (0.30-0.82) K/mm3 Eos # (Auto) (0.04-0.54) K/mm3 Baso # (Auto) (0.01-0.08) K/mm3 Manual Slide Review PT (9.7-12.0) SECONDS INR Sodium (136-145) mEq/L Potassium (3.5-5.1) mEq/L Chloride (98-107) mEq/L Carbon Dioxide (21-32) mEq/L Anion Gap (5-15) BUN (7-18) mg/dL Creatinine (0.7-1.3) mg/dL Est Cr Clr Drug Dosing mL/min Estimated GFR (MDRD) (>60) mL/min BUN/Creatinine Ratio (14-18) Glucose (70-99) mg/dL Lactic Acid 0.8 (0.4-2.0) mmol/L Calcium (8.5-10.1) mg/dL Total Bilirubin (0.2-1.0) mg/dL AST (15-37) U/L ALT (16-63) U/L Alkaline Phosphatase (46-116) U/L Troponin I 0.042 (0.00-0.056) ng/mL NT-Pro-B Natriuret Pep 5888 H (0-125) pg/mL Total Protein (6.4-8.2) g/dl Albumin (3.4-5.0) g/dl Globulin gm/dL Albumin/Globulin Ratio (1-2) 08/06/20 08/06/20 08/06/20 Range/Units 05:55 05:55 05:55 WBC 4.07 L (4.23-9.07) K/mm3 RBC 3.24 L (4.63-6.08) M/mm3 Hgb 9.5 L (13.7-17.5) gm/dl Hct 29.2 L (40.1-51.0) % MCV 90.1 (79.0-92.2) fl MCH 29.3 (25.7-32.2) pg MCHC 32.5 (32.2-35.5) g/dl RDW Std Deviation 46.9 H (35.1-43.9) fL Plt Count 121 L (163-337) K/mm3 MPV 8.8 L (9.4-12.3) fl Neut % (Auto) 81.5 H (34.0-67.9) % Lymph % (Auto) 8.6 L (21.8-53.1) % Bosque % (Auto) 8.8 (5.3-12.2) % Eos % (Auto) 0.7 L (0.8-7.0) Baso % (Auto) 0.2 (0.1-1.2) % Neut # (Auto) 3.31 (1.78-5.38) K/mm3 Lymph # (Auto) 0.35 L (1.32-3.57) K/mm3 Bosque # (Auto) 0.36 (0.30-0.82) K/mm3 Eos # (Auto) 0.03 L (0.04-0.54) K/mm3 Baso # (Auto) 0.01 (0.01-0.08) K/mm3 Manual Slide Review Abnormal smear PT 22.2 H (9.7-12.0) SECONDS INR 2.11 Sodium 139 (136-145) mEq/L Potassium 3.5 (3.5-5.1) mEq/L Chloride 105 (98-107) mEq/L Carbon Dioxide 23 (21-32) mEq/L Anion Gap 14.5 (5-15) BUN 25 H (7-18) mg/dL Creatinine 1.2 (0.7-1.3) mg/dL Est Cr Clr Drug Dosing 60.18 mL/min Estimated GFR (MDRD) 59 (>60) mL/min BUN/Creatinine Ratio 20.8 H (14-18) Glucose 105 H (70-99) mg/dL Lactic Acid (0.4-2.0) mmol/L Calcium 7.9 L (8.5-10.1) mg/dL Total Bilirubin 0.5 (0.2-1.0) mg/dL AST 63 H (15-37) U/L ALT 47 (16-63) U/L Alkaline Phosphatase 117 H (46-116) U/L Troponin I (0.00-0.056) ng/mL NT-Pro-B Natriuret Pep (0-125) pg/mL Total Protein 5.8 L (6.4-8.2) g/dl Albumin 2.4 L (3.4-5.0) g/dl Globulin 3.4 gm/dL Albumin/Globulin Ratio 0.7 L (1-2) [place] Results - Last 24 hrs: Microbiology 08/05/20 09:51 Aerobic Blood Culture - Preliminary Blood - Venous Staphylococcus Aureus Anaerobic Blood Culture - Preliminary NO GROWTH AFTER 1 DAY 08/05/20 10:00 Aerobic Blood Culture - Preliminary Blood - Venous - Lab Draw Staphylococcus Aureus Anaerobic Blood Culture - Preliminary NO GROWTH AFTER 1 DAY 08/04/20 17:30 Aerobic Blood Culture - Preliminary Blood - Venous Staphylococcus Aureus Anaerobic Blood Culture - Preliminary Staphylococcus Aureus 08/04/20 17:40 Aerobic Blood Culture - Preliminary Blood - Venous - Lab Draw Staphylococcus Aureus Anaerobic Blood Culture - Preliminary Gram Positive Cocci In Clustrs Med Orders - Current: Current Medications Acetaminophen (Acetaminophen 325 Mg Tab) 650 mg PO Q6H PRN PRN Reason: Pain/Fever Last Admin: 08/06/20 06:50 Dose: 650 mg Documented by: Albuterol/Ipratropium (Albuterol/Ipratropium 3.0-0.5 Mg/3 Ml Neb Soln) 3 ml NEB Q4H PRN PRN Reason: Shortness Of Breath/wheezing Amantadine HCl (Amantadine 100 Mg Cap) 100 mg PO TID [facility] Last Admin: 08/06/20 14:18 Dose: 100 mg Documented by: Amlodipine Besylate (Amlodipine 10 Mg Tab) 10 mg PO DAILY [facility] Last Admin: 08/06/20 08:28 Dose: 10 mg Documented by: Aspirin (Aspirin 81 Mg Tab.Chew) 81 mg PO DAILY [facility] Last Admin: 08/06/20 11:37 Dose: 81 mg Documented by: Docusate Sodium (Docusate Sodium 100 Mg Cap) 100 mg PO BID PRN PRN Reason: Constipation Hydrochlorothiazide (Hydrochlorothiazide 25 Mg Tab) 25 mg PO DAILY [facility] Promethazine HCl 12.5 mg/ (Sodium Chloride) 50.5 mls @ 100 mls/hr IV Q6H PRN PRN Reason: Nausea/Vomiting Ceftriaxone Sodium 2 gm/ (Sodium Chloride) 100 mls @ 200 mls/hr IV Q24H [facility] Last Admin: 08/05/20 17:27 Dose: 200 mls/hr Documented by: Vancomycin HCl 1 gm/Vancomycin HCl 500 mg/ Sodium Chloride 500 mls @ 250 mls/hr IV Q18H [facility] Last Admin: 08/06/20 05:07 Dose: 250 mls/hr Documented by: Levothyroxine Sodium (Levothyroxine 100 Mcg Tab) 100 mcg PO ACBREAKFAST [facility] Last Admin: 08/06/20 11:37 Dose: 100 mcg Documented by: Losartan Potassium (Losartan 100 Mg Tab) 100 mg PO DAILY [facility] Last Admin: 08/06/20 11:38 Dose: 100 mg Documented by: Metoprolol Tartrate (Metoprolol Tartrate 25 Mg Tab) 25 mg PO BID [facility] Last Admin: 08/06/20 08:28 Dose: 25 mg Documented by: Trihexyphenidyl 2 Mg (Tablet Ptom) 0 mg PO TIDMEALS [facility] Last Admin: 08/06/20 11:37 Dose: 2 mg Documented by: Rosuvastatin Calcium (Rosuvastatin 10 Mg Tab) 5 mg PO DAILY [facility] Last Admin: 08/06/20 08:27 Dose: 5 mg Documented by: Sodium Chloride (Sodium Chloride 0.9% 10 Ml Syringe) 10 ml FLUSH ASDIRECTED PRN PRN Reason: Keep Vein Open Last Admin: 08/04/20 17:35 Dose: 10 ml Documented by: Tamsulosin HCl (Tamsulosin 0.4 Mg Cap.Er) 0.4 mg PO BEDTIME [facility] Last Admin: 08/05/20 20:18 Dose: 0.4 mg Documented by: Vancomycin HCl (Pharmacy To Dose - Vancomycin) 1 dose .XX DAILY PRN PRN Reason: RX TO DOSE VANCO Warfarin Sodium (Pharmacy To Dose - Warfarin) 1 dose PO ASDIRECTED PRN PRN Reason: RX TO DOSE WARFARIN Warfarin Sodium (Warfarin 5 Mg Tab) 10 mg PO QPM [facility] Stop: 08/06/20 18:01 Discontinued Medications Acetaminophen (Acetaminophen 325 Mg Tab) 975 mg PO NOW ONE Stop: 08/04/20 17:21 Last Admin: 08/04/20 17:42 Dose: 975 mg Documented by: Acetaminophen (Acetaminophen 325 Mg Tab) Confirm Administered Dose 975 mg .ROUTE .STK-MED ONE Stop: 08/04/20 17:39 Last Admin: 08/04/20 17:45 Dose: Not Given Documented by: Acetaminophen (Acetaminophen 325 Mg Tab) Confirm Administered Dose 975 mg .ROUTE .STK-MED ONE Stop: 08/04/20 17:40 Last Admin: 08/04/20 17:45 Dose: Not Given Documented by: Acetaminophen (Acetaminophen 650 Mg Supp) 650 mg RECTAL Q6H PRN PRN Reason: Pain (mild 1-3) Last Admin: 08/05/20 00:31 Dose: 650 mg Documented by: Aspirin (Aspirin 81 Mg Tab.Chew) 81 mg PO DAILY [facility] Last Admin: 08/06/20 11:32 Dose: Not Given Documented by: Heparin Sodium (Porcine) (Heparin Sodium 5,000 Units/Ml Vial) 5,000 units SUBCUT Q12H [facility] Last Admin: 08/06/20 08:30 Dose: 5,000 units Documented by: Sodium Chloride (Normal Saline) 1,000 mls @ 126 mls/hr IV NOW STA Stop: 08/05/20 01:11 Last Admin: 08/04/20 17:45 Dose: 126 mls/hr Documented by: Ceftriaxone Sodium 1 gm/ (Sodium Chloride) 100 mls @ 200 mls/hr IV ONETIME ONE Stop: 08/04/20 18:40 Last Admin: 08/04/20 18:22 Dose: 200 mls/hr Documented by: Sodium Chloride (Normal Saline) 1,000 mls @ 200 mls/hr IV NOW STA Stop: 08/05/20 01:38 Last Admin: 08/04/20 22:14 Dose: 200 mls/hr Documented by: Lactated Ringer's (Ringers, Lactated) 1,000 mls @ 85 mls/hr IV ASDIRECTED [facility] Last Admin: 08/06/20 01:28 Dose: 85 mls/hr Documented by: Ceftriaxone Sodium 1 gm/ (Sodium Chloride) 100 mls @ 200 mls/hr IV ONETIME ONE Stop: 08/04/20 21:19 Last Admin: 08/04/20 21:50 Dose: 200 mls/hr Documented by: Azithromycin 500 mg/ Sodium (Chloride) 250 mls @ 250 mls/hr IV Q24H [facility] Last Admin: 08/04/20 21:30 Dose: 250 mls/hr Documented by: Magnesium Sulfate/Dextrose 1 (gm/ Premix) 100 mls @ 100 mls/hr IV ONETIME ONE Stop: 08/05/20 00:20 Last Admin: 08/04/20 23:33 Dose: 100 mls/hr Documented by: Vancomycin HCl 1 gm/Vancomycin HCl 750 mg/ Sodium Chloride 500 mls @ 250 mls/hr IV ONETIME ONE Stop: 08/05/20 11:59 Last Admin: 08/05/20 11:05 Dose: 250 mls/hr Documented by: Sodium Chloride (Normal Saline) 250 mls @ 999 mls/hr IV .BOLUS ONE Stop: 08/05/20 17:00 Last Admin: 08/05/20 17:26 Dose: Not Given Documented by: Sodium Chloride (Normal Saline) Confirm Administered Dose 500 mls @ as directed .ROUTE .STK-MED ONE Stop: 08/05/20 16:38 Last Admin: 08/05/20 17:26 Dose: Not Given Documented by: Levothyroxine Sodium (Levothyroxine 100 Mcg Tab) 100 mcg PO DAILY [facility] Last Admin: 08/06/20 11:32 Dose: Not Given Documented by: Losartan Potassium (Losartan 100 Mg Tab) 100 mg PO DAILY [facility] Last Admin: 08/06/20 11:32 Dose: Not Given Documented by: Metoprolol Tartrate (Metoprolol Tartrate 50 Mg Tab) 50 mg PO BID [facility] Last Admin: 08/05/20 09:06 Dose: 50 mg Documented by: Morphine Sulfate (Morphine 2 Mg/Ml Syringe) 2 mg IVPUSH Q4H PRN PRN Reason: Pain (severe 7-10) Stop: 08/05/20 20:44 Non-Formulary Medication (Pilocarpine) 5 mg PO DAILY [facility] Last Admin: 08/05/20 08:51 Dose: Not Given Documented by: Potassium Chloride (Potassium Chloride 20 Meq Tab.Er) 20 meq PO TIDMEALS [facility] Stop: 08/06/20 07:01 Last Admin: 08/06/20 06:50 Dose: 20 meq Documented by: Warfarin Sodium (Warfarin 5 Mg Tab) 10 mg PO QPM [facility] Stop: 08/05/20 18:01 Last Admin: 08/05/20 17:27 Dose: 10 mg Documented by: - Exam Physical Findings Comments:: General: Alert, Cooperative HEENT: Conjunctiva Clear, EOMI, Pupils Equal, Pupils Reactive, PERRLA. head and chin shaking. Neck: Supple, Trachea Midline, Full Range of Motion Lungs: Normal Respiratory Effort, Crackles (RLL) Cardiovascular: Regular Rate, Regular Rhythm, metalic mitral valve GI/Abdominal Exam: Normal Bowel Sounds, Soft, Non-Tender, No Organomegaly, No Distention Extremities: Normal Inspection, Normal Range of Motion, Non-Tender, No Pedal Edema Skin: Warm, Dry, Intact Neurological: Strength Equal Bilateral, Normal Speech, Normal Tone, Sensation Intact Neuro Extensive - Mental Status: Normal Mood/Affect Psychiatric: Normal Affect, Normal Mood
[2020-08-06] MEDS: cefTRIAXone 2 GM in Sodium Chloride 0.9% 100 ML IV SCH (17:21)
[2020-08-06] MEDS ORDERED: Warfarin 5 MG Tab PO SCH (18:00)
[2020-08-06] MEDS: Tamsulosin 0.4 MG Cap.ER PO SCH (21:22)
[2020-08-07] MEDS: Levothyroxine 100 MCG Tab PO SCH (06:12)
[2020-08-07] MEDS: TRIHEXYPHENIDYL 2 MG PO SCH (06:13)
[2020-08-07] MEDS ORDERED: Metoprolol Tartrate 25 MG Tab PO SCH (08:15)
[2020-08-07] MEDS: Losartan 100 MG Tab PO SCH (08:49)
[2020-08-07] MEDS: Rosuvastatin 10 MG Tab PO SCH (08:49)
[2020-08-07] MEDS: amLODIPine 10 MG Tab PO SCH (08:50)
[2020-08-07] MEDS: Aspirin 81 MG Tab.Chew PO SCH (08:51)
[2020-08-07] MEDS: Amantadine 100 MG Cap PO SCH (08:51)
[2020-08-07] MEDS ORDERED: Hydrochlorothiazide 25 MG Tab PO SCH (09:00)
--- NOTE | 2020-08-07 10:34 | PCM.SN.2 ---
- Free Text/Narrative Note: EKG on 08/07/2020 at 10:02:22 - Junctional rhythm and LBBB. Other abnormalities could be missed.
--- NOTE | 2020-08-07 11:01 | PCM.SN.2 ---
- Free Text/Narrative Note: Pt's EKG showed Junctional rhythm and LBBB. Pt has been on aspirin. I switched crestor 5mg daily to lipitor 40mg daily Troponin was ordered. I updated these changes to cardiology Dr. Jensen at [facility] in [place].
[2020-08-07] MEDS ORDERED: Warfarin 7.5 MG Tab PO SCH (18:00)
[2020-08-07] MEDS ORDERED: atorvaSTATin 40 MG Tab PO SCH (21:00)
== END 2020-08-07 10:45 | DRG 871 ==
LOC: JD.ED 16:41 → JD.MS 20:11
PROVIDERS: ADMIT Internal Medicine; ATTEND Internal Medicine
DX: A41.01 Sepsis due to Methicillin susceptible Staphylococcus aureus (principal); J96.01 Acute respiratory failure with hypoxia; I10 Essential (primary) hypertension; Z95.2 Presence of prosthetic heart valve; K44.9 Diaphragmatic hernia without obstruction or gangrene; J18.9 Pneumonia, unspecified organism; E87.1 Hypo-osmolality and hyponatremia; N17.9 Acute kidney failure, unspecified; G20 Parkinson's disease; D63.1 Anemia in chronic kidney disease; N18.9 Chronic kidney disease, unspecified; Z20.822 Contact with and (suspected) exposure to COVID-19; I12.9 Hypertensive chronic kidney disease with stage 1 through stage 4 chronic kidney disease, or unspecified chronic kidney disease; R00.1 Bradycardia, unspecified; E78.00 Pure hypercholesterolemia, unspecified; M54.9 Dorsalgia, unspecified; G89.29 Other chronic pain; F41.9 Anxiety disorder, unspecified; Z79.01 Long term (current) use of anticoagulants; Z79.899 Other long term (current) drug therapy; Z90.49 Acquired absence of other specified parts of digestive tract; R41.82 Altered mental status, unspecified
CPT/HCPCS: 36415; 71045; 80053; 81001; 83605; 83735; 84484; 85007; 85027; 85610; 86140; 87040 ×2; 87077; 87186; 96365; 99285; A9270; J0696; J7030; U0002; 70450; 70450-26; 71250; 71250-26; 80202; 83036; 83880; 85025; 87641; 92610-GN; 93005; 93306; 94762; 97110-GP; 97116-GP; 97161-GP; 97165-GO; 99223; 99233; 99239; J0456; J1644; J3370; J3475; J7040; J7050; J7120